=== PATIENT | female | born 1955 | race Caucasian/White ===

== ENCOUNTER 2024-12-20 08:43 | Outpatient (AMB) | payer OTHER, SELFPAY ==
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
[2024-12-20 08:45] VITALS: BP 120/82; PULSE 64; O2SAT 96; BMI 24.7
--- OUTSIDE RECORDS SUMMARY | 2024-12-20 09:08 | XMS_ITS | Encounter Summary ---
Author Organization [facility] Address [address] [facility] [address] [place] [address] Phone Care Team Providers Care Liaison Engineer Name Role Phone Pcp, Unknown Primary Care Provider Eliza Hyde Primary Care Provider [phone] Akilah Mary MD Primary Care Provider [phone] Zeenat Santana MD Primary Care Provider [phone] Encounter Details Date Type Department Care Team (Late st Contact Info) Description 07/14/2023 Procedure Pass [facility], Ct Scan - [address] [address] Social History Tobacco Use Types Packs/Day Years Used Date Smoking Tobacco: Never Smokeless Tobacco: Never Alcohol Use Standard Drinks/Week Comments Yes 0 (1 standard drink = 0.6 oz pur e alcohol) Education Answer Date Recorded Are you interested in more education? Not on rafy e 07/14/2023 Are you concerned about learning? Not on file 07/14/2023 No 07/14/2023 No 07/14/2023 Digital Access Answer Date Recorded No 07/14/2023 No 07/14/2023 Reliable internet access at home? Not on file 07/14/2023 Device with a working camera? Not on file Comments Unknown Sex and Gender Information Value Date Recorded Sex Assigned at Female 07/14/2023 9:30 AM EDT Legal Sex Female 9:15 AM EDT Gender Identity Female 07/14/2023 9:30 AM EDT Sexual Orientation Straight 07/14/2023 9: 30 AM EDT documented as of this encounter Functional Status * Calculated C-SSRS Risk Score (Lifetime/Recent) Answer Date of Assessment Author No Risk Indicated 07/14/2023 9:30 AM EDT Tasneem Pearce ma, RN * Josephine Suicide Severity Rating Scale (Screener/Recent Self-Report) Question Answer Date of Assessment Author 1. Wish to be (Past 1 Month) No 024 9:30 AM EDT Babs Pearce RN 2. Non-Specific Active Suici magy Thoughts (Past 1 Month) No 07/14/2023 9:30 AM EDT Babs Pearce RN 6. Suicidal Behavior (Lifetime) No 9:30 AM EDT Babs Pearce RN documented as of this encounter Plan of Treatment Upcoming Encounters Date Type Department Care Team (Late st Contact Info) Description 03/09/2025 1:00 PM EST Office Visit [facility] Psychology Assessment Center 1 [facility] 7th [place] [address] Audra Blair, PhD [address] [place] [address] [address] [place] [address] MARIA [email or web address] 03/22/2025 1:00 PM EST Telemedicine [facility] Sleep Disorders Unit [address] [place] [address], 8th Floor, [address] [place] [address] Gianni Forbes FNP [address] [place] [address] [address] [address] [email or web address] 04/05/2025 1:00 PM EST Office Visit [facility] [address] [place] [address] [place] [address] Zeenat Santana MD [address] [place] [address], 2nd [place] [address] documented as of this encounter Visit Diagnoses Not on filedocumented in this encounter Care Teams Liaison Engineer Relationship Specialty Start Date End Date Pcp, Unknown PCP - General 07/14/23 10/26/23 Eliza Tavera FNP [address] [address] [email or web address] PCP - General Nurse Practitioner 10/27/23 05/13/24 Akilah Mary MD [address] [address] PCP - General Family Medicine 05/14/24 12/01/24 Zeenat Santana MD [address] [place] [address], 2nd [place] [address] PCP - General Internal Medicine 12/02/24 documented as of this encounter Additional Source Comments The information contained in this document represents components of the legal health record. It is not the complete legal health record.[facility]
--- OUTSIDE RECORDS SUMMARY | 2024-12-20 09:08 | XMS_ITS | Clinical Summary ---
Author Organization [address] Address [address] [place] [phone] Phone Care Team Providers Care Pattern Designer Name Role Phone Unavailable Primary Care Provider Unavailabl e Social History Tobacco Use Types Packs/Day Years Used Date Smoking Tobacco: Never Assessed Comments Unknown Sex and Gender Information Value Date Recorded Sex Assigned at Not on file Legal Sex Female 9:49 AM EDT Gender Identity Not on file Sexual Orientation Not on file Plan of Treatment Upcoming Encounters Date Type Department Care Team (Late st Contact Info) Description 04/26/2025 9:00 AM EST Evaluation [facility] [address] [place] [address] Mroris Sanchez MD [address] [place] [phone] Trinidad Carrizales PsyD [address] [place] [phone] Health Maintenance Due Date Last Done Comments HIV screening 1966 Hepatitis C screening 1971 Tetanus adult (Td q 10,TDAP once) 1973 Breast cancer screening 1993 Lipid disorder screening 1993 Colon cancer screening, Colonoscopy 1998 Diabetes screening 1998 Osteoporosis screening (bone density) 2018 Influenza vaccine 10/22/2024 01/11/2022, , 12/24/2019, Additional history exists Covid-19 vaccine series ( - 2023- season) 2024 RSV Immunization (1 - 1-dose 75+ series) 2028 Pneumococcal Vaccine (50+ years) Completed 03/06/2020, 06/15/2018 Shingles vaccine (Shingrix) Completed 06/05/2021, 1 05/01/2020 Cervical cancer screening Discontinued Meningococcal B Vaccine Aged Out No l onger eligible based on patient's age to complete this topic Meningococcal Vaccine Aged Out No dawson [place] eligible based on patient's age to complete this topic Insurance [facility] MGD [facility] M[facility] MGD
--- OUTSIDE RECORDS SUMMARY | 2024-12-20 09:08 | XMS_ITS | Encounter Summary ---
Author Organization [facility] Address [address] [facility] [address] [place] [address] Phone Care Team Providers Care Bindery Assistant Name Role Phone Pcp, Unknown Primary Care Provider Eliza Hyde Primary Care Provider [phone] Akilah Mary MD Primary Care Provider [phone] Zeenat Santana MD Primary Care Provider [phone] Encounter Details Date Type Department Care Team (Late st Contact Info) Description 07/14/2023 Procedure Pass [facility], Ct Scan - [address] [address] Social History Tobacco Use Types Packs/Day Years [...] AM EDT Tasneem Pearce ma, RN * [place] Suicide Severity Rating Scale (Screener/Recent Self-Report) Question [...] Description 03/09/2025 1:00 PM EST Office Visit [facility] Psychology Assessment Center 1 [facility] 7th [place] [address] Audra Blair, PhD [address] [place] [address] [address]01[address] [place] [address] MARIA [email or web address] 03/22/2025 1:00 PM EST Telemedicine [facility] Sleep Disorders Unit [address] [place] [address], 8th Floor, [address] [place] [address] Gianni Forbes FNP [address] [place] [address] [address] [email or web address] 04/05/2025 1:00 PM EST Office Visit [facility] [address] [place] [address] [place] [address] Zeenat Santana MD [address] [place] [address], 2[address] [place] [address] documented as of this encounter Visit Diagnoses Not on filedocumented in this encounter Care Teams Bindery Assistant Relationship Specialty Start Date End Date Pcp, Unknown PCP - General 07/14/23 10/26/23 Eliza Tavera FNP [address] [address] [email or web address] PCP - General Nurse Practitioner 10/27/23 05/13/24 Akilah Mary MD [address] [address] PCP - General Family Medicine 05/14/24 12/01/24 Zeenat Santana MD [address] [place] [address], 2nd [place] [address] PCP - General Internal Medicine 12/02/24 documented as of this encounter Additional Source Comments The information contained in this document represents components of the legal health record. It is not the complete legal health record.[facility]
--- OUTSIDE RECORDS SUMMARY | 2024-12-20 09:08 | XMS_ITS | Encounter Summary ---
Author Organization [facility] Address [address] [facility] [address] [place] [address] Phone Care Team Providers Care Underwriting Clerks Supervisor Name Role Phone Eliza Tavera ACCOUNT COLLECTOR Primary Care Provider [phone] Akilah Mary MD Primary Care Provider [phone] Zeenat Santana MD Primary Care Provider [phone] Encounter Details Date Type Department Care Team (Late st Contact Info) Description 02/05/2024 Procedure Pass [address] [place] [address] Social History Tobacco Use Types Packs/Day Years Used Date Smoking Tobacco: Former Cigarettes 1 43 1 8 - 2010 Smokeless Tobacco: Never Comments:Quit in 2010 Alcohol Use Standard Drinks/Week Comments Yes 0 (1 standard drink = 0.6 oz pure alcohol) Occasionally, about 3 times a month Child or Family Care Answer Date Record ed Do you have problems with on e of the following making it difficult for you to work, study, or receive health care? No 10/01/2023 Education Answer Date Recorded Are you interested in more education? Not on rafy e 07/14/2023 Are you concerned about learning? Not on file 07/14/2023 No 07/14/2023 No 07/14/2023 Food Answer Date Recorded Within the past 6 months we worried whether our food would run out before we got money to buy more. Never True 10/01/2023 Within the past 6 months the food we bought just didn't last and we didn't have enough money to get more. Never True Residential Stability Answer Date Recor ded What is your housing situation today? I have lupe samuel 10/01/2023 How many times have you move d in the past 12 months? I choose not to answer 10/01/2023 Paying for Meds Answer Date Recorded Do you have trouble paying for medicines? No 10/01/2023 Paying Utility Bills Answer Date Record ed Do you have trouble paying your heating or elect ricity bill? No 10/01/2023 Transportation Answer Date Recorded Has the lack of transportati on kept you from medical appointments or from getting medications? No 10/01/2023 Digital Access Answer Date Recorded No 10/01/2023 Yes 10/01/2023 Do you have reliable internet access at home? Ye s 10/01/2023 Do you have a device (e.g., phone, tablet, computer) with a working camera? Yes 10/01/2023 Intimate Partner Violence Answer Date R ecorded Are you denied basic needs s uch as food, clothing, or medical care? No 10/03/2023 In the past 12 months have y ou been in a relationship with a person who hurts, threatens, or tries to control you? Deferred 10/03/2023 Are you denied basic needs s uch as food, clothing, or medical care? No 10/03/2023 In the past 12 months have y ou been in a relationship with a person who hurts, threatens, or tries to control you? Deferred 10/03/2023 Comments Unknown Sex and Gender Information Value Date Recorded Sex Assigned at Female 07/14/2023 9:30 AM EDT Legal Sex Female 9:15 AM EDT Gender Identity Female 07/14/2023 9:30 AM EDT Sexual Orientation Straight 07/14/2023 9: 30 AM EDT documented as of this encounter Plan of Treatment Upcoming Encounters Date Type Department Care Team (Late st Contact Info) Description 03/09/2025 1:00 PM EST Office Visit [facility] Psychology Assessment Center [address] [place], [place] [id number] Audra Blair, PhD [address] [place] [address] MARIA [email or web address] 03/22/2025 1:00 PM EST Telemedicine [facility] Sleep Disorders Unit [address] [facility], 8th Floor, [address] [place] [address] Gianni Forbes FNP [address] [facility] [place] [address] [email or web address] 04/05/2025 1:00 PM EST Office Visit [facility] [address] [place] [address] [place] [address] Zeenat Santana MD [address] [place] [address] [email or web address] documented as of this encounter Visit Diagnoses Not on filedocumented in this encounter Care Teams Underwriting Clerks Supervisor Relationship Specialty Start Date End Date Eliza Tavera FNP [address] [address] [email or web address] PCP - General Nurse Practitioner 10/27/23 05/13/24 Akilah Mary MD 15 [facility] [address] [place] [address] PCP - General Family Medicine 05/14/24 12/01/24 Zeenat Santana MD [address] [place] [address] [email or web address] PCP - General Internal Medicine 12/02/24 documented as of this encounter Additional Source Comments The information contained in this document represents components of the legal health record. It is not the complete legal health record.[facility]
--- OUTSIDE RECORDS SUMMARY | 2024-12-20 09:08 | XMS_ITS | Clinical Summary ---
Author Organization [facility] Address [address] [facility] [address] [place] [phone] Phone Care Team Providers Care Silk Hanger Name Role Phone Max Zeenat Hernandez MD Primary Care Provider [phone] Allergies Active Allergy Reactions Criticality Noted Date Comments Penicillins Rash Low 07/14/2023 Medications atenolol (TENORMIN) 50 mg tablet Take 50 mg by mouth daily. Active buPROPion (WELLBUTRIN) 100 MG immediate release tablet Take 100 mg by mouth 2 (two) times a day. Active hydroCHLOROthiazi de 25 MG tablet Take 25 mg by mouth daily. 4 Active losartan (COZAAR) 100 MG tablet Take 100 mg by mouth daily. Active PARoxetine (PAXIL) 40 MG tablet Take 40 mg by mouth every morning. Active rosuvastatin (CRESTOR) 20 MG tablet Take 20 mg by mouth daily. Active calcium-vitamin D3-vitamin K (VIACTIV) 1,250 mg (500 mg elemental)-500 unit-40 mcg Chew Take 1 tablet by mouth daily. Active betamethasone dipropionate 0.05 % cream 4 Active minoxidiL (LONITEN) 2.5 MG tablet 4 Active BABY ASPIRIN ORAL Take 81 mg by mouth daily. Active gabapentin (NEURONTIN) 300 MG capsuleIndication s:Lumbar radiculopathy Take 1 capsule (300 mg total) by mouth nightly at bedtime. 30 capsule 11/12/03/19 25 Discontinu ed(No longer taking) Active Problems Problem Noted Date Diagnosed Date Depression with anxiety 12/02/2024 Involuntary movements 12/02/2024 At risk for falling 11/12/2023 Assessment & Plan (11/12/2023 9:10 AM EDT): Discussed concerns related to falls and unsteadiness. I do believe that she may benefit from ambulatory aid when walking greater distances due to reports stumbling Memory loss 10/03/2023 Assessment & Plan (05/07/2024 5:43 PM EST): We discussed upcoming appointment with neurology for further evaluation of perceived memory changes. Devorah does note concern that her daughters may be correct she is starting to experience more difficulty with word finding. Assessment & Plan (11/12/2023 9:08 AM EDT): Encouraged to schedule appointment with neurology, referral and scheduling information given to patient today Assessment & Plan (10/03/2023 5:42 PM EDT): Discussed concern for recent memory changes including difficulty with word finding. In conjunction with subjective report of frequent falls and altered gait I do think that consultation with neurology is important. Referral placed to Dr. Cordova. We will also request previous medical records for further insight into pertinent medical history as she is unable to recall at time of appointment. Cardiomyopathy 04/29/2023 Assessment & Plan (10/03/2023 5:41 PM EDT): Previous cardiology notes requested for diagnostic clarity as she is uncertain of official diagnosis and previous workup. Essential hypertension 04/29/2023 Assessment & Plan (05/07/2024 5:43 PM EST): Well-controlled today in office, continue medications as prescribed Assessment & Plan (11/12/2023 9:07 AM EDT): Well controlled today in office, continue medications as prescribed Assessment & Plan (10/03/2023 5:40 PM EDT): Blood pressure well-controlled today in office. Previous cardiology notes requested. Continue medications as prescribed. LUIZ (obstructive sleep apnea) 04/29/2023 Unsteady gait Low back pain Urinary incontinence Encounters Date Type Department Care Team Description 12/02/2024 10:43 AM EDT - 12/02/2024 11:59 PM EDT Hospital Encounter [facility] [address] [place] [address] Morris Sanchez MD Discharge Disposition: Home or Self Care 12/02/2024 10:00 AM EDT Office Visit [facility] [address] [place] [address] Zeenat Santana MD Essential hypertension (Primary Dx); Cardiomyopathy, unspecified type; Memory loss; Involuntary movements; Depression with anxiety 10/18/2024 2:33 PM EDT - 10/18/2024 11:59 PM EDT Hospital Encounter [facility] [address] [address] Damion Olmos FNP Discharge Disposition: Home or Self Care from Last 3 Months Immunizations Immunization Administration Dates Next Due COVID-19 Moderna Vaccine 6mo-11yr 2023,02/27/2023,03/14/2022,2020,06/10/2020,05/13/2020 Influenza High-Dose Trivalen t Preservative Free IM 12/02/2024 Influenza, Unspecified Formulation 11/23/2023 Family History Medical History Relation Comments Breast cancer Daughter 1 Age 44. Testing done stated not hereditary No Known Problems Daughter 2 Heart disease Father Pancreatic cancer Mother Stage 4 when d iscovered. Now . Breast cancer Sister She Did genetic testing and type was not heredity Relation Status Comments Daughter 1 Alive Daughter 2 Alive Father Mother Sister Alive Social History Tobacco Use Types Packs/Day Years Used Date Smoking Tobacco: Former Cigarettes 1 43 0 03/24/1967 - 07/03/2011 Smokeless Tobacco: Never Tobacco Cessation:Counseling Given: Not Answered Comments:Did not smoke prior to or for while after Alcohol Use Standard Drinks/Week Comments Not Currently 0 (1 standard drink = 0.6 oz pure alcohol) 2-3 drinks a month. Some months none Child or Family Care Answer Date Record [...] your housing situation today? I have lupe sing 10/01/2023 How many times have you move [...] as food, clothing, or medical care? No 11/26/2024 In the past 12 months have y ou been in a relationship with a person who hurts, threatens, or tries to control you? No 11/26/2024 Are you denied basic needs s uch as food, clothing, or medical care? No 11/26/2024 In the past 12 months have y ou been in a relationship with a person who hurts, threatens, or tries to control you? No 11/26/2024 Comments No Sex and Gender Information Value Date Recorded Sex Assigned at Female 07/14/2023 9:30 AM EDT Legal Sex Female 9:15 AM EDT Gender Identity Female 07/14/2023 9:30 AM EDT Sexual Orientation Straight 07/14/2023 9: 30 AM EDT Last Filed Vital Signs Vital Sign Reading Time Taken Comments Blood Pressure 136/70 12/02/2024 9:59 AM EDT Pulse 61 12/02/2024 9:59 AM EDT Temperature 36.7 C (98 F) 07/14/2023 3:41 PM EDT Respiratory Rate 16 07/14/2023 3:41 PM EDT Oxygen Saturation 95% 12/02/2024 9:59 AM EDT Inhaled Oxygen Concentration - - Weight 69.2 kg (152 lb 9.6 oz) 12/02/2024 9:59 A M EDT Height 170.2 cm (5' 7 ) 05/06/2024 11:12 AM EST Body Mass Index 23.9 05/06/2024 11:12 AM EST Plan of Treatment Upcoming Encounters Date Type Department Care Team (Late st Contact Info) Description 03/09/2025 1:00 PM EST Office Visit [facility] Psychology Assessment Center [address] [place] [address] 7th [place] [address] Audra Blair, PhD [address] [place] [address] [address] [place] [address] MARIA [email or web address] 03/22/2025 1:00 PM EST Telemedicine [facility] Sleep Disorders Unit [address] [place] [address], 8th Floor, [address] [place] [address] Gianni Forbes FNP [address] [place] [address] [facility] [address] [place] [address] [email or web address] 04/05/2025 1:00 PM EST Office Visit [facility] [address] [place] [address] [place] [address] Zeenat Santana MD [address] [place] [address], [address] [place] [address] Health Maintenance Due Date Last Done Comments Adult Td,Tdap Booster 1955 LIPID PANEL 1953 HEPATITIS C SCREENING 1971 COLOGUARD 1998 COLONOSCOPY 1998 COLORECTAL CANCER SCREENING 1998 FIT TEST 1998 FOBT 1998 SIGMOIDOSCOPY 1998 VIRTUAL COLONOSCOPY 1998 LUNG CANCER SCREENING (LDCT Only) 2003 PNEUMOCOCCAL VACCINES (50+ years) (1 of 1 - PCV) 2003 ZOSTER VACCINES (1 of 2) 2003 COVID-19 VACCINE ( - 2023- season) 2024 10/23/2023, 02/27/2023, 03/14/2022, Additional history exists REPEAT PHQ 12/26/2024 11/26/2024, 11/26/2024 BLOOD PRESSURE 06/01/2025 12/02/2024 DEPRESSION SCREENING 11/26/2025 11/26/2024, 11/27/19 25 CREATININE LEVEL 12/02/2025 12/02/2024, 07/14/2023 POTASSIUM LEVEL 12/02/2025 12/02/2024, 07/14/2023 MAMMOGRAM 04/26/2026 04/26/2024, 11/0 11/2022, 12/16/2019, Additional history exists RSV VACCINE (1 - 1-dose 75+ series) 2028 OSTEOPOROSIS SCREENING INITIAL (ONE-TIME) Completed 10/18/2024 INFLUENZA VACCINE Completed 12/02/2024, 11/23/2023 HEPATITIS A VACCINES Aged Out No long er eligible based on patient's age to complete this topic HIB VACCINES Aged Out No longer eligi ble based on patient's age to complete this topic MENINGOCOCCAL VACCINES (ACWY) Aged Out No longer eligible based on patient's age to complete this topic MENINGOCOCCAL VACCINES (B) Aged Out N o longer eligible based on patient's age to complete this topic Medical Devices Not on file Procedures Procedure Name Priority Date/Time Associated Diagnosis Comments LYME WESTERN BLOT ONLY Routine 10:44 AM EDT CBC AND DIFFERENTIAL Routine 12/02/2024 10:44 AM EDT Memory loss Unsteady gait COMPREHENSIVE METABOLIC PANEL Routine 12/02/2024 10:44 AM EDT Memory loss Unsteady gait FOLATE Routine 12/02/2024 10:44 AM EDT Memory loss Unsteady gait VITAMIN B12 Routine 12/02/2024 10:44 AM EDT Memory loss Unsteady gait TSH WITH REFLEX Routine 12/02/2024 10:44 AM EDT Memory loss Unsteady gait SYPHILIS ANTIBODY SCREEN ASSAY Routine 12/02/2024 10:44 AM EDT Memory loss Unsteady gait SEDIMENTATION RATE (ESR) Routine 12/02/2024 10:44 AM EDT Memory loss Unsteady gait 25-OH VITAMIN D Routine 12/02/2024 10:44 AM EDT Vitamin D deficiency, unspecified LYME SCREEN WITH REFLEX TO WESTERN BLOT, BLOOD Routine 12/02/2024 10:44 AM EDT Memory loss Unsteady gait BD DXA AXIAL (SPINE) WITH HIP Routine 10/18/2024 2:48 PM EDT Menopausal state OUTSIDE IMAGING 10/04/2024 BI MAMMOGRAM SCREENING WITH TOMOSYNTHESIS WITH CAD (BILATERAL) Routine 04/26/2024 11:39 AM EST Encounter for screening mammogram for malignant neoplasm of breast from Last 3 Months or Most Recently Relevant to Health Maintenance Results * Lyme Western blot only (12/02/2024 10:44 AM EDT) IGG Immunoblot Negative Negative [facility] IGG BANDS (KDA) p23 kDa [facility] IGM Immunoblot Negative Negative [facility] IGM BANDS (KDA) p41 kDa [facility] Interpretation - Lyme SEE NOTE [facility] [address] Comment: (NOTE) Specific serologic response to B. burgdorferi infection is not detected, but cannot rule out early infection during which low or undetectable antibody levels to B. burgdorferi may be present. If clinically indicated, a new serum specimen should be submitted in 7-14 days. ADDITIONAL INFORMATION Per CDC criteria, the Lyme IgG Immunoblot is interpreted as positive if IgG-class antibodies are detected to >=5 B. burgdorferi proteins, and the Lyme IgM Immunoblot is interpreted as positive if IgM-class antibodies are detected to >=2 B. burgdorferi proteins. Immunoblot patterns not meeting these criteria should not be interpreted as positive. Epitopes from certain B. burgdorferi proteins (e.g., p41) are conserved across other bacteria, which may lead to the detection of IgM- and/or IgG-class antibodies on the Lyme disease immunoblots in patients without Lyme disease. Immunoblot should only be ordered on specimens that are positive or equivocal by a FDA-licensed Lyme disease antibody screening test (e.g., EIA). Results of the Lyme IgM immunoblot should not be considered in patients with >= 30 days of symptoms. 12/02/2024 10:4 4 AM EDT 12/02/2024 10:50 AM EDT Morris Sanchez MD LAB BLOOD ORDERABLES Final Res ult [facility] [address] [place] [address] * (ABNORMAL) Lyme Screen with Reflex to Immunoblot, Blood (12/02/2024 10:44 AM EDT) Lyme AB IgG Negative Negative [facility] Lyme AB IgM Equivocal(A) Negative [facility] Comment:The Lyme Disease Ant ibody, Confirmation, Serum (Western Blot) has been reflexed. The results will follow. Blood 12/02/2024 10:4 4 AM EDT 12/02/2024 10:50 AM EDT us Morris Sanchez MD LAB BLOOD ORDERABLES Final Res ult [address] [address] * (ABNORMAL) Comprehensive metabolic panel (12/02/2024 10:44 AM EDT) SODIUM 144 133 - 146 mmol/L [facility] POTASSIUM 4.6 3.3 - 5.1 mmol/L [facility] CHLORIDE 105 96 - 108 mmol/L [facility] CO2 28 21 - 35 mmol/L [facility] BUN 15 6 - 19 mg/dL [facility] CREATININE 1.00 0.5 - 1.5 mg/dL [facility] GLUCOSE 110(H) 70 - 99 mg/dL [facility] ALBUMIN 4.1 3.9 - 4.8 g/dL [facility] TOTAL PROTEIN 7.1 6.5 - 8.0 g/dL [facility] CALCIUM 10.4(H) 8.4 - 10.3 mg/dL [facility] ALKALINE PHOSPHATASE 111 39 - 117 U/L [facility] TOTAL BILIRUBIN 0.3 0.0 - 1.2 mg/dL [facility] AST 33 0 - 37 U/L [facility] ALT 22 0 - 40 U/L [facility] GLOBULIN 3.0 1 - 4.8 g/dL [facility] EGFR 60 >59 mL/min/1.7 3m2 [facility] Comment:Estimated glomerular filtration rate calculated using the CKD-EPI refit equation. ANION GAP 16 10 - 20 mmol/L [facility] Blood 12/02/2024 10:4 4 AM EDT 12/02/2024 10:50 AM EDT us Morris Sanchez MD LAB BLOOD ORDERABLES Final Res ult [address] [address] * TSH with reflex (12/02/2024 10:44 AM EDT) TSH 2.65 0.27 - 4.20 uIU/mL [facility] Blood 12/02/2024 10:4 4 AM EDT 12/02/2024 10:50 AM EDT Morris Sanchez MD LAB BLOOD ORDERABLES Final Res ult Performing Organization Address City/[facility]/ZIP Co de Phone Number [address] [address] * Syphilis antibody screen (12/02/2024 10:44 AM EDT) RPR NON-REACTIV E NON-REACTI VE [facility] Blood 12/02/2024 10:4 4 AM EDT 12/02/2024 10:50 AM EDT Morris Sancehz MD LAB BLOOD ORDERABLES Final Res ult Performing Organization Address [facility] Co de Phone Number [address] [address] * 25-OH vitamin D (12/02/2024 10:44 AM EDT) 25 OH VIT D (TOTAL) 48 30 - 60 ng/mL [facility] Blood 12/02/2024 10:4 4 AM EDT 12/02/2024 10:50 AM EDT Morris Sanchez MD LAB BLOOD ORDERABLES Final Res ult Performing Organization Address City/[facility] Co de Phone Number [address] [address] * Sedimentation rate (ESR) (12/02/2024 10:44 AM EDT) ESR 29 0 - 30 mm/h [facility] Blood 12/02/2024 10:4 4 AM EDT 12/02/2024 10:50 AM EDT Morris Sanchez MD LAB BLOOD ORDERABLES Final Res ult [facility] [address] [place] [address] * CBC and differential (12/02/2024 10:44 AM EDT) WBC 6.47 4.00 - 11.00 K/uL [facility] RBC 4.67 4.00 - 5.20 M/uL [facility] HGB 13.1 12.0 - 16.0 g/dL [facility] HCT 40.7 36.0 - 46.0 % [facility] PLT 222 150 - 450 K/uL [facility] MCV 87.2 80.0 - 100.0 fL [facility] MCH 28.1 27.0 - 31.0 pg [facility] MCHC 32.2 32.0 - 36.0 g/dL [facility] RDW 13.2 11.5 - 14.5 % [facility] MPV 11.7 8.4 - 12.0 fL [facility] NRBC 0.00 0.00 /100 WBCs [facility] ABSOLUTE NRBC 0.00 0.00 K/uL [facility] DIFF METHOD Auto [facility] NEUTS 54.1 48.0 - 76.0 % [facility] LYMPHS 33.1 18.0 - 41.0 % [facility] MONOS 8.0 4.0 - 11.0 % [facility] EOS 3.2 0.0 - 5.0 % [facility] BASOS 1.4 0.0 - 1.5 % [facility] Granulocytes, immature (%) 0.2 0.0 - 0.9 % [facility] ABSOLUTE NEUTS 3.50 1.92 - 7.60 K/uL [facility] ABSOLUTE LYMPHS 2.14 0.72 - 4.10 K/uL [facility] ABSOLUTE MONOS 0.52 0.16 - 1.10 K/uL [facility] ABSOLUTE EOS 0.21 0.00 - 0.50 K/uL [facility] ABSOLUTE BASOS 0.09 0.00 - 0.15 K/uL [facility] Granulocytes, immature 0.01 0.00 - 0.09 K/uL [facility] Blood 12/02/2024 10:4 4 AM EDT 12/02/2024 10:50 AM EDT us Morris Sanchez MD LAB BLOOD ORDERABLES Final Res ult Performing Organization Address City/[facility]/ZIP Co de Phone Number [address] [address] * Folate (12/02/2024 10:44 AM EDT) FOLIC ACID 11.0 4.2 - 19.9 ng/mL [facility] Blood 12/02/2024 10:4 4 AM EDT 12/02/2024 10:50 AM EDT us Morris Sanchez MD LAB BLOOD ORDERABLES Final Res ult Performing Organization Address [facility]/ZIP Co de Phone Number [address] [address] * Vitamin B12 (12/02/2024 10:44 AM EDT) VITAMIN B12 281 232 - 1,245 pg/mL [facility] Blood 12/02/2024 10:4 4 AM EDT 12/02/2024 10:50 AM EDT Morris Sanchez MD LAB BLOOD ORDERABLES Final Res ult Performing Organization Address [facility] Co de Phone Number [address] [address] * BD DXA AXIAL (SPINE) WITH HIP (10/18/2024 2:48 PM EDT) Anatomical Region Laterality Modality Bone Density Bone Density 10/18/2024 2:47 PM EDT Impressions 10/19/2024 12:17 PM EDT Interpretation: Osteopenia. Narrative 10/19/2024 12:17 PM EDT Referred By: DAMION OLMOS Indications: Postmenopausal Scanner: Crambu A with serial# of [id number] located at [facility] Bone Density Scan (DXA) 10/18/24 Details of prior DXA scans are available by clicking View Full Report BMD T- Z- Skeletal Site gm/cm2 score score BMD Change Since Prior Scan ------ ----- ----- PA Spine (L1 L4) 1.048 0.10 2.30 N/A Total Hip (Left) 0.874 -0.60 1.00 N/A Femoral Neck (Left) 0.757 -0.80 1.10 N/A Total Hip (Right) 0.841 -0.80 0.80 N/A Femoral Neck (Right) 0.675 -1.60 0.30 N/A ------ ----- ----- * Denotes significant change when >= 0.022 g/cm2 for the spine, 0.027 g/cm2 for the total hip, 0.029 g/cm2 for the femoral neck. Interpretation: Osteopenia. Technical Quality: Imaging of all sites was of adequate quality.Because only two vertebrae are measurable, interpret PA spine results with caution; serial changes may be more variable than usual. FRAX: Based on FRAX(r) 3.6 ([place] White female), this patient's likelihood of hip fracture is 3.9% and major osteoporotic fracture is 15.3% over the next 10 years. The patient reported the following risks of fracture on a questionnaire: parental history of hip fracture. Reviewed By: Lazaro Lockhart on 10/19/2024 12:17:31 Additional Information: -World Health Organization criteria classify adults based on lowest T-score at PA spine, hip or forearm: Normal (T-score >= -1.0), Osteopenia (T-score between -1 and -2.5), or Osteoporosis (T-score <= -2.5). At [facility], T-scores are compared to peak bone density of a young white gender matched reference population. - For premenopausal women and men under the age of 50, Z-scores (comparison to age, gender, and ethnicity matched reference population) are used: Above expected range for age (Z-score >= 2.0), Within expected range of age (Z-score 1.9 to -1.9), or Below expected range for age (Z-score <= -2.0). - The Bone Health and Osteoporosis Foundation recommends that treatment be considered in men aged more than 50 years and in postmenopausal women with ANY of the following: Prior hip or vertebral fractures; T-score of <= -2.5 at the PA spine or hip; or 10 year fracture probability by FRAX of >= 3% for the hip or >= 20% for major osteoporotic fracture. - The FRAX algorithm (https://www.amena.ac.uk/FRAX/tool.aspx) is designed to predict 10-year fracture risk in treatment-naive adults between the ages of 40 and 90. It is not intended to be used in those receiving pharmacologic osteoporosis treatment. - The TBS is derived from the texture of the DXA spine image and has been shown to be related to bone microarchitecture and fracture risk. This data provides information independent of BMD value. It adds to fracture risk assessment with a FRAX adjusted for TBS score. If your patient had a TBS and qualified for a FRAX score, the reported FRAX score has been adjusted for TBS. TBS Score Interpretation 1.350 and greater Normal bone microarchitecture 1.200 to 1.350 Partially degraded bone microarchitecture 1.200 and less Degraded bone microarchitecture - Including race/ethnicity in the generation of T- or Z-scores or in the FRAX calculation is complicated, and currently undergoing active review to ensure that we can give patients the best information on their risk of fracture. - Some prior studies may not be compatible with our comparison software. - Click on View Full Report to see subsequent pages with images and prior bone density results. Procedure Note Lazaro Lockhart MD - 10/19/2024 Referred By: DAMION OLMOS Indications: Postmenopausal Scanner: Crambu A with serial# of [id number] located at [facility] Bone Density Scan (DXA) 10/18/24 Details of prior DXA scans are available by clicking View Full Report BMD T- Z- Skeletal Site gm/cm2 score score BMD Change Since Prior Scan ------ ----- PA Spine (L1 L4) 1.048 0.10 2.30 N/A Total Hip (Left) 0.874 -0.60 1.00 N/A Femoral Neck (Left) 0.757 -0.80 1.10 N/A Total Hip (Right) 0.841 -0.80 0.80 N/A Femoral Neck (Right) 0.675 -1.60 0.30 N/A ------ ----- * Denotes significant change when >= 0.022 g/cm2 for the spine, 0.027g/cm2 for the total hip, 0.029 g/cm2 for the femoral neck. Interpretation: Osteopenia. Technical Quality: Imaging of all sites was of adequate quality.Becauseonly two vertebrae are measurable, interpret PA spine results with caution; serial changes may be more variable than usual. FRAX: Based on FRAX(r) 3.6 ([place] White female), this patient's likelihoodof hip fracture is 3.9% and major osteoporotic fracture is 15.3% over thenext 10 years. The patient reported the following risks of fracture on a questionnaire: parental history of hip fracture. Reviewed By: Lazaro Lockhart on 10/19/2024 12:17:31 Additional Information: -World Health Organization criteria classify adults based on lowestT-score at PA spine, hip or forearm: Normal (T-score >= -1.0), Osteopenia (T-score between -1 and -2.5), or Osteoporosis (T-score <= -2.5). At [facility], T-scores are compared to peak bone density of a young white gender matched reference population. - For premenopausal women and men under the age of 50, Z-scores(comparison to age, gender, and ethnicity matched reference population) are used:Above expected range for age (Z-score >= 2.0), Within expected range of age (Z-score 1.9 to -1.9), or Below expected range for age (Z-score <= -2.0). - The Bone Health and Osteoporosis Foundation recommends that treatment be considered in men aged more than 50 years and in postmenopausal women with ANY of the following: Prior hip or vertebral fractures; T-score of <= -2.5 at the PA spine or hip; or 10 year fracture probability by FRAX of >= 3%for the hip or >= 20% for major osteoporotic fracture. - The FRAX algorithm (https://www.amena.ac.uk/FRAX/tool.aspx) is designed to predict 10-year fracture risk in treatment-naive adultsbetween the ages of 40 and 90. It is not intended to be used in those receiving pharmacologic osteoporosis treatment. - The TBS is derived from the texture of the DXA spine image and has been shown to be related to bone microarchitecture and fracture risk. This data provides information independent of BMD value. It adds to fracture risk assessment with a FRAX adjusted for TBS score. If your patient had a TBSand qualified for a FRAX score, the reported FRAX score has been adjusted for TBS. TBS Score Interpretation 1.350 and greater Normal bone microarchitecture 1.200 to 1.350 Partially degraded bone microarchitecture 1.200 and less Degraded bone microarchitecture - Including race/ethnicity in the generation of T- or Z-scores or in the FRAX calculation is complicated, and currently undergoing active review to ensure that we can give patients the best information on their risk of fracture. - Some prior studies may not be compatible with our comparison software. - Click on View Full Report to see subsequent pages with images andprior bone density results. IMPRESSION: Interpretation: Osteopenia. us Damion [employer]ined[employer] CONTROLLER IMG BD BONE DENSITY DEXA Fi nal Result * Outside Imaging Report Only (10/04/2024) us Scanning Interface Provider IMG XR CHEST Sandhya l Result * BI MAMMOGRAM SCREENING WITH TOMOSYNTHESIS WITH CAD (BILATERAL) (04/26/2024 11:39 AM EST) Anatomical Region Laterality Modality Breast Left, Breast Right, Breast Bilateral Bila teral Mammography 04/27/2024 11:0 4 AM EST Impressions 04/27/2024 11:06 AM EST No mammographic evidence of malignancy in either breast. Annual screening mammography is recommended. BI-RADS 1 NEGATIVE The patient will be notified of the results and recommendations. Narrative 04/27/2024 11:06 AM EST BI MAMMOGRAM SCREENING WITH TOMOSYNTHESIS WITH CAD (BILATERAL) Additional patient information: Screening. COMPARISON: Comparison is made to relevant outside prior imaging. Breast composition: There are scattered areas of fibroglandular density. FINDINGS: No abnormal masses, suspicious calcifications, or other significant findings are identified mammographically in either breast. Procedure Note Ese Correa MD - 04/27/2024 BI MAMMOGRAM SCREENING WITH TOMOSYNTHESIS WITH CAD (BILATERAL) Additional patient information: Screening. COMPARISON: Comparison is made to relevant outside prior imaging. Breast composition: There are scattered areas of fibroglandular density. FINDINGS: No abnormal masses, suspicious calcifications, or other significantfindings are identified mammographically in either breast. IMPRESSION: No mammographic evidence of malignancy in either breast. Annual screening mammography is recommended. BI-RADS 1 NEGATIVE The patient will be notified of the results and recommendations. Damion Olmos COAL OR ORE CONTROLLER IMG MG EXAMS Final Resul t from Last 3 Months or Most Recently Relevant to Health Maintenance Insurance [facility] MED[facility] REPLACEMENT [facility] RE[facility]ACEMENT [facility] REPLACEMENT Care Teams Silk Hanger Relationship Specialty Start Date End Date Zeenat Santana MD [address] [place] [address], 2nd [place] [address] [email or web address] PCP - General Internal Medicine 12/02/24 Additional Source Comments The information contained in this document represents components of the legal health record. It is not the complete legal health record.[facility]
--- OUTSIDE RECORDS SUMMARY | 2024-12-20 09:09 | XMS_ITS | Encounter Summary ---
Author Organization [facility] Address [address] [facility] [address] [facility] [address] [place] [address] Phone Care Team Providers Care Glass Bulb Silverer Name Role Phone Eliza Tavera Primary Care Provider Akilah Mary MD Primary Care Provider [phone] Zeenat Santana MD Primary Care Provider Reason for Visit * Reason Onset Date Comments Leg Pain 02/05/2024 Red Encounter Details Date Type Department Care Team (Late st Contact Info) Description 02/05/[address] [facility] [address] [place] [address] Eliza Tavera FNP [address] [facility] [address] [place] [address] [email or web address] Leg Pain (Red/) Social History Tobacco Use Types Packs/Day Years Used Date Smoking Tobacco: Former Cigarettes 1 43 1 968 - 2010 Smokeless Tobacco: Never Comments:Quit in [...] AM EDT documented as of this encounter Progress Notes * Stella Salguero LPN - 02/05/2024 10:55 AM EST S/W Devorah, notes this has been going on for about a year but getting progressively worse. Did go toED in June but no follow up. Started as sciatica, L leg. Usually feels good in the morning and pain progresses throughout the day. Numbness and pins and needles intermittently. No acute weakness. Used heat and ibuprofen to get to sleep but woke up with pain in the night. No sx of restless leg. No redness, swelling, or warmth, no sx of DVT. Nurse Triage Encounter Note Reason for Triage Estefania Coronado contacted office for Leg Pain Red Call Disposition Schedule Visit Within 2 Business Days Disposition Comments: Patient/caregiver understands and will follow disposition: Yes Initial Symptom Screening and Assessment IA Symptom Onset One month or more Symptom Severity Moderate - interferes with normal activities Symptom Pattern Intermittent (comes and goes) Home Treatments OTC Medications; Heat Location? LLE Extremities Neck/Back Symptoms (Musculoskeletal) Musculoskeletal Symptoms Other Other musculoskeletal symptoms Leg pain Did you fall? No Recurrant symptom or condition? Yes Does the pain radiate to elsewhere? No Weakness? No Numbness or loss of sensation? Yes Location? L Leg Other musculoskeletal related symptoms? intermittent pins and needles Care Advice No Care Advice given for this encounter. Patient will call back with additional questions or if symptoms change or worsen Stella Salguero LPN Reason for Disposition and Assessment Reason for Disposition Numbness in a leg or foot (i.e., loss of sensation) Protocols used: Leg [id number] * Vandana Portillo - 02/05/2024 10:45 AM EST Pt called stating has unbearable leg pain in left leg.Please contact and advise. Central Support Chef French (Please do not reply to this user; this inbox is not monitored.) Thank you. documented in this encounter Plan of Treatment Upcoming Encounters Date Type Department Care Team (Late st Contact Info) Description 03/09/2025 1:00 PM EST Office Visit [facility] Psychology Assessment Center [address] [facility] 7th [place] [address] Audra Blair, PhD [address] [facility] [address] [place] [address] MARIA [email or web address] 03/22/2025 1:00 PM EST Telemedicine [facility] Sleep Disorders Unit [address] [facility], 8th Floor, [address] [place] [address] Gianni Forbes FNP [address] [facility] [address] [place] [address] [email or web address] 04/05/2025 1:00 PM EST Office Visit [facility] [address] [place] [address] [place] [address] Zeenat Santana MD [address] [place] [address] [email or web address] documented as of this encounter Visit Diagnoses Not on filedocumented in this encounter Care Teams Glass Bulb Silverer Relationship Specialty Start Date End Date Eliza Tavera FNP [address] [place] [address] [email or web address] PCP - General Nurse Practitioner 10/27/23 05/13/24 Akilah Mary MD [address] [address] PCP - General Family Medicine 05/14/24 12/01/24 Zeenat Santana MD [address] [place] [address] [email or web address] PCP - General Internal Medicine 12/02/24 documented as of this encounter Additional Source Comments The information contained in this document represents components of the legal health record. It is not the complete legal health record.[facility]
--- OUTSIDE RECORDS SUMMARY | 2024-12-20 09:09 | XMS_ITS | Encounter Summary ---
Author Organization [facility] Address [address] [place] [address] Phone Care Team Providers Care Addiction Specialist Name Role Phone Akilah Mray MD Primary Care Provider [phone] Zeenat Santana MD Primary Care Provider [phone] Encounter Details Date Type Department Care Team (Late st Contact Info) Description 07/26/2024 Procedure Pass MRI, [facility] Imaging - [place] [address] [place] [address] Social History Tobacco Use Types Packs/Day Years Used Date Smoking Tobacco: Former Cigarettes 1 43 0 03/24/1967 - 07/03/2011 Smokeless Tobacco: Never Comments:Did not smoke prior to or for while after Alcohol Use Standard Drinks/Week Comments Yes 0 [...] tries to control you? Deferred 10/03/2023 Comments No Sex and Gender Information Value [...] Description 03/09/2025 1:00 PM EST Office Visit [facility] Psychology Assessment Center [address] [place] [address] Audra Blair, PhD [address] [place] [address] [email or web address] [email or web address] 03/22/2025 1:00 PM EST Telemedicine [facility] Sleep Disorders Unit [address] [facility], 8th Floor, [address] [place] [address] Gianni Forbes FNP [address] [facility] [address] [place] [address] [email or web address] 04/05/2025 1:00 PM EST Office Visit [facility] [address] [place] [address] [place] [address] Zeenat Santana MD [address] [place] [address], [address] [place] [address] [email or web address] documented as of this encounter Visit Diagnoses Not on filedocumented in this encounter Care Teams Addiction Specialist Relationship Specialty Start Date End Date Akilah Mary MD [address] [facility] [address] [place] [address] [email or web address] PCP - General Family Medicine 05/14/24 12/01/24 Zeenat Santana MD [address] [place] [address], [address] [place] [address] PCP - General Internal Medicine 12/02/24 documented as of this encounter Additional Source Comments The information contained in this document represents components of the legal health record. It is not the complete legal health record.[facility]
--- OUTSIDE RECORDS SUMMARY | 2024-12-20 09:09 | XMS_ITS | Encounter Summary ---
Author Organization [facility] Address [address] [place] [address] Phone Care Team Providers Care Landfill Gas Technician Name Role Phone Akilah Mary MD Primary Care Provider [phone] Zeenat Santana MD Primary Care Provider [phone] Encounter Details Date Type Department Care Team (Late st Contact Info) Description 07/26/2024 Procedure Pass MRI, [facility] Imaging - [place] [address] [place] [address] Social History Tobacco Use Types Packs/Day Years [...] Description 03/09/2025 1:00 PM EST Office [place] [facility] [place] [address] [place] [address] Audra Blair, PhD [address] [place] [phone] MARIA [email or web address] 03/22/2025 1:00 PM EST Telemedicine [facility] Sleep Disorders Unit [address] [facility], 8th Floor, [address] [place] [address] Gianni Forbes FNP [address] [facility] [address] [place] [address] [email or web address] 04/05/2025 1:00 PM EST Office Visit [facility] [address] [place] [address] [place] [address] Zeenat Santana MD [address] [place] [address], [address] [place] [address] [email or web address] documented as of this encounter Visit Diagnoses Not on filedocumented in this encounter Care Teams Landfill Gas Technician Relationship Specialty Start Date End Date Akilah Mary MD [address] [facility] [address] [place] [address] [email or web address] PCP - General Family Medicine 05/14/24 12/01/24 Zeenat Santana MD [address] [place] [address], [address] [place] [address] PCP - General Internal Medicine 12/02/24 documented as of this encounter Additional Source Comments The information contained in this document represents components of the legal health record. It is not the complete legal health record.[facility]
--- OUTSIDE RECORDS SUMMARY | 2024-12-20 09:09 | XMS_ITS ---
Author Name [facility] Organization Unknown Results Test Name/Text Value Interpretation Date Range Source GLUCOSE MEAN VALUE:ACNC:PT:BLD:QN:ES TIMATED FROM GLYCATED HEMOGLOBIN 120.0 mg/dL Normal 06/04/2024 [facility] HEMOGLOBIN A1C/HEMOGLOBIN.TOTAL:MF R:PT:BLD:QN:HPLC 5.8 % Above high normal 06/04/2024 4 - 5.6 [facility] LDL Note See Note Normal 06/04/2024 [facility] CHOLESTEROL.IN LDL:MCNC:PT:SER/PLAS:QN :CALCULATED 63.0 mg/dL Normal 06/04/2024 - [facility] CHOLESTEROL.IN HDL:MCNC:PT:SER/PLAS:QN : 47.0 mg/dL Below low normal 06/04/2024 - [facility] CHOLESTEROL:MCNC:PT:SER /PLAS:QN: 133.0 mg/dL Normal 06/04/2024 - [facility] TRIGLYCERIDE:MCNC:PT:SE R/PLAS:QN: 115.0 mg/dL Normal 06/04/2024 - [facility] GLOMERULAR FILTRATION RATE/1.73 SQ M.PREDICTED:ARVRAT:PT:S ER/PLAS/BLD:QN:CREATINI NE-BASED FORMULA (CKD-EPI) 57.0 mL/min/1.73 m2 Below low normal 06/04/2024 - [facility] ANION GAP 3:SCNC:PT:SER/PLAS:QN: 10.0 mmol/L Normal 06/04/2024 8 - 16 [facility] POTASSIUM:SCNC:PT:SER/P LAS:QN: 4.1 mmol/L Normal 06/04/2024 3.5 - 5.3 [facility] CHLORIDE:SCNC:PT:SER/PL :QN: 107.0 mmol/L Normal 06/04/2024 97 - 107 [facility] SODIUM:SCNC:PT:SER/PLAS :QN: 143.0 mmol/L Normal 06/04/2024 135 - 145 [facility] BILIRUBIN:MCNC:PT:SER/P LAS:QN: 0.5 mg/dL Normal 06/04/2024 0 - 1.2 [facility] ALANINE AMINOTRANSFERASE:CCNC:P T:SER/PLAS:QN:WITH P-5'-P 18.0 U/L Normal 06/04/2024 10 - 55 [facility] BICARBONATE:SCNC:PT:SER /PLAS:QN: 26.0 mmol/L Normal 06/04/2024 22 - 29 [facility] UREA NITROGEN:MCNC:PT:SER/PL :QN: 18.0 mg/dL Normal 06/04/2024 6 - 23 [facility] ALBUMIN:MCNC:PT:SER/DAMION S:QN:BCG 4.1 g/dL Normal 06/04/2024 3.7 - 5.1 [facility] CALCIUM:MCNC:PT:SER/DAMION S:QN: 9.6 mg/dL Normal 06/04/2024 8.6 - 10.4 [facility] PROTEIN:MCNC:PT:SER/DAMION S:QN: 6.5 g/dL Normal 06/04/2024 6.3 - 7.9 [facility] ALKALINE PHOSPHATASE:CCNC:PT:SER /PLAS:QN: 94.0 U/L Normal 06/04/2024 30 - 146 [facility] GLOBULIN:MCNC:PT:SER:QN :CALCULATED 2.4 g/dL Normal 06/04/2024 1.8 - 3.4 [facility] ASPARTATE AMINOTRANSFERASE:CCNC:P T:SER/PLAS:QN:WITH P-5'-P 24.0 U/L Normal 06/04/2024 10 - 50 [facility] ALBUMIN/GLOBULIN:MRTO:P T:SER/PLAS:QN: 1.7 Normal 06/04/2024 1.1 - 2.5 [facility] GLUCOSE:MCNC:PT:SER/DAMION S:QN: 120.0 mg/dL Above high normal 06/04/2024 70 - 99 [facility] CREATININE:MCNC:PT:SER/ PLAS:QN: 1.04 mg/dL Normal 06/04/2024 0.5 - 1.04 [facility] THYROTROPIN:ACNC:PT:SER /PLAS:QN:DETECTION LIMIT <= 0.005 MIU/L 2.15 mIU/L Normal 06/04/2024 0.27 - 4.2 [facility] GRANULOCYTES.IMMATURE:N CNC:PT:BLD:QN:AUTOMATED COUNT 0.01 x10(9)/L Normal 06/04/2024 0 - 0.1 [facility] MONOCYTES:NCNC:PT:BLD:Q N:AUTOMATED COUNT 0.49 x10(9)/L Normal 06/04/2024 0 - 1 [facility] MONOCYTES/100 LEUKOCYTES:NFR:PT:BLD:Q N:AUTOMATED COUNT 8.2 % Normal 06/04/2024 4 - 12 [facility] NEUTROPHILS:NCNC:PT:BLD :QN:AUTOMATED COUNT 3.59 x10(9)/L Normal 06/04/2024 2 - 7.5 [facility] LYMPHOCYTES:NCNC:PT:BLD :QN:AUTOMATED COUNT 1.64 x10(9)/L Normal 06/04/2024 1 - 4 [facility] BASOPHILS/100 LEUKOCYTES:NFR:PT:BLD:Q N:AUTOMATED COUNT 1.5 % Normal 06/04/2024 0 - 2 [facility] BASOPHILS:NCNC:PT:BLD:Q N:AUTOMATED COUNT 0.09 x10(9)/L Normal 06/04/2024 0 - 0.2 [facility] EOSINOPHILS/100 LEUKOCYTES:NFR:PT:BLD:Q N:AUTOMATED COUNT 2.3 % Normal 06/04/2024 0 - 7 [facility] LYMPHOCYTES/100 LEUKOCYTES:NFR:PT:BLD:Q N:AUTOMATED COUNT 27.5 % Normal 06/04/2024 20 - 45 [facility] NEUTROPHILS/100 LEUKOCYTES:NFR:PT:BLD:Q N:AUTOMATED COUNT 60.3 % Normal 06/04/2024 40 - 75 [facility] GRANULOCYTES.IMMATURE/1 00 LEUKOCYTES:NFR:PT:BLD:Q N:AUTOMATED COUNT 0.2 % Normal 06/04/2024 0 - 0.9 [facility] EOSINOPHILS:NCNC:PT:BLD :QN:AUTOMATED COUNT 0.14 x10(9)/L Normal 06/04/2024 0 - 0.5 [facility] HEMOGLOBIN:MCNC:PT:BLD: QN: 12.7 g/dL Normal 06/04/2024 12 - 16 [facility] ERYTHROCYTE DISTRIBUTION WIDTH:ENTVOL:PT:RBC:QN: AUTOMATED COUNT 40.2 fL Normal 06/04/2024 35 - 47 [facility] LEUKOCYTES:NCNC:PT:BLD: QN:AUTOMATED COUNT 6.0 x10(9)/L Normal 06/04/2024 3.5 - 10 [facility] PLATELETS:NCNC:PT:BLD:Q N:AUTOMATED COUNT 226.0 x10(9)/L Normal 06/04/2024 150 - 400 [facility] ERYTHROCYTES:NCNC:PT:BL D:QN:AUTOMATED COUNT 4.47 x10(12)/L Normal 06/04/2024 3.8 - 5.2 [facility] ERYTHROCYTE DISTRIBUTION WIDTH:RATIO:PT:RBC:QN:A UTOMATED COUNT 13.0 % Normal 06/04/2024 11.5 - 15 [facility] HEMATOCRIT:VFR:PT:BLD:Q N:AUTOMATED COUNT 38.1 % Normal 06/04/2024 35 - 46 [facility] ERYTHROCYTE MEAN CORPUSCULAR HEMOGLOBIN:ENTMASS:PT:R BC:QN:AUTOMATED COUNT 28.4 pg Normal 06/04/2024 25 - 34 [facility] PLATELET MEAN VOLUME:ENTVOL:PT:BLD:QN :AUTOMATED COUNT 11.2 fL Normal 06/04/2024 9.3 - 13 [facility] ERYTHROCYTE MEAN CORPUSCULAR HEMOGLOBIN CONCENTRATION:MCNC:PT:R BC:QN:AUTOMATED COUNT 33.3 g/dL Normal 06/04/2024 31 - 36 [facility] ERYTHROCYTE MEAN CORPUSCULAR VOLUME:ENTVOL:PT:RBC:QN :AUTOMATED COUNT 85.2 fL Normal 06/04/2024 80 - 99 [facility] ERYTHROCYTES.NUCLEATED/ 100 LEUKOCYTES:RATIO:PT:BLD :QN:AUTOMATED COUNT 0.0 /100(WBCs) Normal 06/04/2024 [facility] History of Medication Use Medication Directions Dispensed Refills Start Date End Date Stat gabapentin Oral, 0 Refill(s) 06/04/2024 Ordered minoxidil Oral, BID, 0 Refill(s) 06/04/2024 Ordered atenolol 50 mg oral tablet See Instructions, TAKE 1 TABLET BY MOUTH DAILY, # 90 tab, 3 Refill(s), [facility] 170, cm, 01/11/22 13:14:00 EDT, Height/Length Measured, 71.2, kg, 01/11/22 13:14:00 EDT, Weight Dosing 03/14/2022 Ordered atenolol 50 mg oral tablet 1 tab, Oral, Daily, # 90 tab, 1 Refill(s), Pharmacy: [facility], 169, cm, 04/23/21 11:27:00 EST, Height/Length Measured, 74.4, kg, 04/23/21 11:27:00 EST, Weight Dosing 09/25/2021 Ordered hydroCHLOROthiazide 25 mg oral tablet 1 tab, Oral, Daily, # 90 tab, 0 Refill(s), Pharmacy: [facility], 169, cm, 05/02/23 14:24:00 EST, Height/Length Measured, 68.3, kg, 05/02/23 14:26:00 EST, Weight Dosing 09/25/2021 Ordered losartan 100 mg oral tablet 1 tab, Oral, Daily, # 90 tab, 3 Refill(s), Pharmacy: [facility], 169, cm, 05/02/23 14:24:00 EST, Height/Length Measured, 68.3, kg, 05/02/23 14:26:00 EST, Weight Dosing 09/25/2021 Ordered clobetasol 0.05% topical cream 1 alexa, Topical, BID, # 60 g, 1 Refill(s), Pharmacy: [facility]/pharmacy #[id number], 170, cm, 08/28/20 8:49:00 EDT, Height/Length Measured, 74.5, kg, 08/28/20 8:49:00 EDT, Weight Dosing 08/28/2020 Ordered aspirin 81 mg =, Oral, Daily, 0 Refill(s) 08/25/2020 Ordered buPROPion 100 mg/12 hours (SR) oral tablet, extended release 1 tab, Oral, BID, 1 TAB(S) UP TO 2 TIMES A DAY. per Alix Quintanilla 12/16/2018 Ordered buPROPion 100 mg/12 hours (SR) oral tablet, extended release 1 tab, Oral, BID, 1 TAB(S) UP TO 2 TIMES A DAY. per Alix Quintanilla 12/16/2018 Ordered Paxil 40 mg oral tablet 1 tab, Oral, Daily, # 30 tab, 0 Refill(s) 02/20/2018 Ordered Paxil 40 mg oral tablet 1 tab, Oral, Daily, # 30 tab, 0 Refill(s) 02/20/2018 Ordered Allergies Allergen Reaction Severity Comment Documented Date Source Statu s PENICILLINS<SUP>1</SUP> RASH [facility] Problems Problem Status Onset Date Problem Type Date of Resoluti on Source Mitral valve regurgitation (disorder) active ProblemAct [facility] Otalgia (disorder) active ProblemAct [facility] Recurrent falls (finding) active ProblemAct [facility] Mixed anxiety and depressive disorder (disorder) active ProblemAct [facility] Hypertensive disorder, systemic arterial (disorder) active ProblemAct [facility] At risk for falls (finding) active ProblemAct [facility] Overweight (finding) active ProblemAct [facility] Mood disorder (disorder) active ProblemAct [facility] Obstructive sleep apnea syndrome (disorder) active ProblemAct [facility] Microscopic hematuria (disorder) active ProblemAct [facility] Weight fluctuates (finding) active ProblemAct [facility] Dysuria (finding) active ProblemAct C [facility] Renal infarction (disorder) active ProblemAct [facility] Hypercholesterolemia (disorder) active ProblemAct [facility] History of polyp of colon (situation) active ProblemAct [facility] Parotid swelling (finding) active ProblemAct [facility] Acute renal insufficiency (disorder) active ProblemAct [facility] Dyspnea (finding) active ProblemAct C [facility] Wandering atrial pacemaker (finding) active ProblemAct [facility] Hyperglycemia (disorder) active ProblemAct [facility] Cough (finding) active ProblemAct [facility] Daytime somnolence (finding) active ProblemAct [facility] Hand pain (finding) active ProblemAct [facility] Liver function tests abnormal (finding) active ProblemAct [facility] Intermittent claudication (disorder) active ProblemAct [facility] Acute renal impairment (disorder) active ProblemAct [facility] Impaired fasting glycaemia (disorder) active ProblemAct [facility] Posterior rhinorrhea (disorder) active ProblemAct [facility] Immunizations Vaccine Date Source Lot Number Status tetanus toxoid 05/15/2022 [facility] UNK completed influenza virus vaccine, inactivated 01/11/2022 [facility] [id number] completed SARS-CoV-2 (COVID-19) mRNA-1273 vaccine 07/22/2021 [facility] [id number] completed zoster vaccine, inactivated 06/05/2021 [facility] [id number] completed zoster vaccine, inactivated 02/28/2021 [facility] [id number] completed influenza virus vaccine, inactivated 02/20/2021 [facility] [id number] completed SARS-CoV-2 (COVID-19) mRNA-1273 vaccine 01/23/2021 [facility] [id number] completed SARS-CoV-2 (COVID-19) mRNA-1 273 vaccine<sup>1</sup> 06/10/2020 [facility] UNK completed SARS-CoV-2 (COVID-19) mRNA-1 273 vaccine<sup>2</sup> 05/13/2020 [facility] UNK completed pneumococcal 23-polyvalent [id number] completed tetanus toxoid 03/06/2020 [facility] UNK completed zoster vaccine live 03/06/2020 [facility] UNK compl eted influenza virus vaccine, inactivated 12/24/2019 [facility] [id number] completed influenza virus vaccine, inactivated 12/16/2018 [facility] [id number] completed pneumococcal 13-valent conjugate vaccine 06/15/2018 [facility] [id number] completed influenza virus vaccine, inactivated 01/20/2018 [facility] [id number] completed influenza virus vaccine, inactivated 01/15/2017 [facility] [id number] completed influenza vaccine (misc)<sup>3</sup> 12/22/2014 [facility] UNK completed influenza vaccine (misc) 01/07/2013 [facility] [id number] completed Encounters Encounter Type Encounter Reason Primary Diagnosis Location Date Ambulatory [facility] 06/04/2024 Ambulatory 1 yr fu - RESCHEDULE D FROM 03/30/24 [facility] 06/04/2024 Ambulatory BACK PAIN [facility] 05/02/2023 Ambulatory 6m [facility] 02/27/2023 Ambulatory [facility] 01/31/20 23 Ambulatory [facility] 07/25/2022 Ambulatory [facility] dical Practices 05/15/2022 Ambulatory [facility] Laboratory 05/11/2022 Ambulatory [facility] 02/02/20 Ambulatory [facility] 01/11/2022 Ambulatory [facility] dical Practices 01/11/2022 Ambulatory [facility] dicpa Practices 10/11/2021 Ambulatory [facility] Practices 08/14/2021 Ambulatory [facility] 05/23/19 22 Care Team Organization Name Specialty Phone Email Start Date End Da te [facility] 05/11/19 23 [facility] 01/22 [facility] Primary Care 01/11/2022 [facility] Primary Care 08/14/2021 01/11/2022 [facility] Primary Care 02/01/2022
== END 2024-12-20 09:57 | disposition home or self-care (01) ==
LOC: HO.HSMS 08:43
PROVIDERS: PCP Internal Medicine; Visit Provider Psychiatry & Neurology Neurology
DX: G25.5 Other chorea (principal); R06.83 Snoring
CPT/HCPCS: 99204

== ENCOUNTER 2024-12-23 15:25 | Outpatient (REF) | payer OTHER, SELFPAY ==
--- OUTSIDE RECORDS SUMMARY | 2024-12-23 16:42 | XMS_ITS | Encounter Summary ---
Author Organization [facility] Address [address] [facility] [address] [place] [address] Phone Care Team Providers Care Hide And Skin Classer Name Role Phone Eliza Tavera SPORTS INFORMATION DIRECTOR Primary Care Provider [phone] Akilah Mary MD Primary Care Provider [phone] Zeenat Santana MD Primary Care Provider [phone] Encounter Details Date Type Department Care Team (Late st Contact Info) Description 02/05/2024 Procedure Pass [address] [place] [address] Social History Tobacco Use Types Packs/Day Years [...] Description 03/09/2025 1:00 PM EST Office Visit [facility] [address] [place], [place] [id number] Audra Blair, PhD [address] [place] [address] MARIA [email or web address] 03/22/2025 1:00 PM EST Telemedicine [facility] 55 [facility], 8th Floor, [address] [place] [address] Gianni Forbes FNP 55 [facility] 835 [place] [address] [email or web address] 04/05/2025 1:00 PM EST Office Visit [facility] [address] [place] [address] [place] [address] Zeenat Santana MD [address] [place] [address] [email or web address] documented as of this encounter Visit Diagnoses Not on filedocumented in this encounter Care Teams Hide And Skin Classer Relationship Specialty Start Date End Date Eliza Tavera FNP [address] [address] [email or web address] PCP - General Nurse Practitioner 10/27/23 05/13/24 Akilah Mary MD 15 [facility] [address] [place] [address] PCP - General Family Medicine 05/14/24 12/01/24 Zeenat Sanatna MD [address] [place] [address] [email or web address] PCP - General Internal Medicine 12/02/24 documented as of this encounter Additional Source Comments The information contained in this document represents components of the legal health record. It is not the complete legal health record.[facility]
--- OUTSIDE RECORDS SUMMARY | 2024-12-23 16:42 | XMS_ITS | Encounter Summary ---
Author Organization [facility] Address [address] [facility] [address] [place] [address] Phone Care Team Providers Care Vibration Engineer Name Role Phone Eliza Tavera CHAR CONVEYOR TENDER CELLAR Primary Care Provider [phone] Akilah Mary MD Primary Care Provider [phone] Zeenat Santana MD Primary Care Provider [phone] Encounter Details Date Type Department Care Team (Late st Contact Info) Description 11/11/2023 Procedure Pass [facility] [address] [place] [address] Social History Tobacco Use Types Packs/Day Years [...] Description 03/09/2025 1:00 PM EST Office Visit [facility] [address] [place] [address] Audra Blair, PhD 55 [facility] [address] [place] [address] MARIA [email or web address] 03/22/2025 1:00 PM EST Telemedicine [facility] 55 [facility], 8th Floor, [address] [place] [address] Gianni Forbes FNP 55 [facility] 835 [place] [address] [email or web address] 04/05/2025 1:00 PM EST Office Visit [facility] [address] [place] [address] [place] [address] Zeenat Santana MD [address] [place] [address] [email or web address] documented as of this encounter Visit Diagnoses Not on filedocumented in this encounter Care Teams Vibration Engineer Relationship Specialty Start Date End Date Eliza Tavera FNP [address] [place] [address] [email or web address] PCP - General Nurse Practitioner 10/27/23 05/13/24 Akilah Mary MD [address] [place] [address] PCP - General Family Medicine 05/14/24 12/01/24 Zeenat Santana MD [address] [place] [address] [email or web address] PCP - General Internal Medicine 12/02/24 documented as of this encounter Additional Source Comments The information contained in this document represents components of the legal health record. It is not the complete legal health record.[facility]
--- OUTSIDE RECORDS SUMMARY | 2024-12-23 16:42 | XMS_ITS | Clinical Summary ---
Author Organization [address] Address [address] [place] [phone] Phone Care Team Providers Care Sanitation Inspector Name Role Phone Unavailable Primary Care Provider [...] 9:00 AM EST Evaluation [facility] [address] [place] [address] Morris Sanchez MD [address] [place] [phone] Trinidad Carrizales PsyD [address] [place] [address] [phone] Health Maintenance Due Date Last Done Comments [...] patient's age to complete this topic Insurance [facility]
--- OUTSIDE RECORDS SUMMARY | 2024-12-23 16:42 | XMS_ITS | Encounter Summary ---
Author Organization [facility] Address [address] [facility] [address] [place] [address] Phone Care Team Providers Care Scruff Worker Name Role Phone Pcp, Unknown Primary Care Provider Eliza Hyde Primary Care Provider [phone] Akilah Mary MD Primary Care Provider [phone] Zeenat Santana MD Primary Care Provider [phone] Encounter Details Date Type Department Care Team (Late st Contact Info) Description 07/14/2023 Procedure Pass [facility] Ct Scan - [address] [address] Social History Tobacco Use Types Packs/Day Years [...] AM EDT Tasneem Pearce ma, RN * [place] Suicide Severity Rating Scale (Screener/Recent Self-Report) Question [...] Description 03/09/2025 1:00 PM EST Office Visit [facility] 1 [facility] 7th [place] [address] Audra Blair, PhD [address] [place] [address] [address] [place] [address] MARIA [email or web address] 03/22/2025 1:00 PM EST Telemedicine [facility] [address] [place] [address], 8th Floor, [address] [place] [address] Gianni Forbes FNP [address] [place] [address] [address] [address] [email or web address] 04/05/2025 1:00 PM EST Office Visit [facility] [address] [place] [address] [place] [address] Zeenat Santana MD [address] [place] [address], 2nd [place] [address] documented as of this encounter Visit Diagnoses Not on filedocumented in this encounter Care Teams Scruff Worker Relationship Specialty Start Date End Date Pcp, Unknown PCP - General 07/14/23 10/26/23 Eliza Tavera FNP [address] [address] [email or web address] PCP - General Nurse Practitioner 10/27/23 05/13/24 Akilah Mary MD [address] [address] PCP - General Family Medicine 05/14/24 12/01/24 Zeenat Santana MD [address] [place] [address], 2nd [place] [address] PCP - General Internal Medicine 12/02/24 documented as of this encounter Additional Source Comments The information contained in this document represents components of the legal health record. It is not the complete legal health record.[facility]
--- OUTSIDE RECORDS SUMMARY | 2024-12-23 16:42 | XMS_ITS | Encounter Summary ---
Author Organization [facility] Address [address] [facility] [address] [place] [address] Phone Care Team Providers Care Tandem Mill Operator Name Role Phone Pcp, Unknown Primary Care Provider Eliza Hyde Primary Care Provider [phone] Akilah Mary MD Primary Care Provider [phone] Zeenat Santana MD Primary Care Provider [phone] Encounter Details Date Type Department Care Team (Late st Contact Info) Description 07/14/2023 Procedure Pass [facility], Ct Scan - [address] [address] Social History Tobacco Use Types Packs/Day Years [...] AM EDT Tasneem Pearce ma, RN * [place] Suicide Severity Rating Scale (Screener/Recent Self-Report) Question [...] Description 03/09/2025 1:00 PM EST Office Visit [facility] Psychology Assessment Center 1 [facility] 7th [place] [address] Audra Blair, PhD [address] [place] [address] [address] [place] [address] MARIA [email or web address] 03/22/2025 1:00 PM EST Telemedicine [facility] Sleep Disorders Unit [address] [place] [address], 8th Floor, [address] [place] [address] Gianni Forbes FNP [address] [place] [address] [address] [address] [email or web address] 04/05/2025 1:00 PM EST Office Visit [facility] [address] [place] [address] [place] [address] Zeenat Santana MD [address] [place] [address], 2nd [place] [address] documented as of this encounter Visit Diagnoses Not on filedocumented in this encounter Care Teams Tandem Mill Operator Relationship Specialty Start Date End Date Pcp, Unknown PCP - General 07/14/23 10/26/23 Eliza Tavera FNP [address] [address] [email or web address] PCP - General Nurse Practitioner 10/27/23 05/13/24 Akilah Mary MD [address] [address] PCP - General Family Medicine 05/14/24 12/01/24 Zeenat Santana MD [address] [place] [address], 2nd [place] [address] PCP - General Internal Medicine 12/02/24 documented as of this encounter Additional Source Comments The information contained in this document represents components of the legal health record. It is not the complete legal health record.[facility]
--- OUTSIDE RECORDS SUMMARY | 2024-12-23 16:43 | XMS_ITS | Encounter Summary ---
Author Organization [facility] Address [address] [facility] [address] [place] [address] Phone Care Team Providers Care Senior Analyst Name Role Phone Akilah Mary MD Primary Care Provider [phone] Zeenat Santana MD Primary Care Provider [phone] Encounter Details Date Type Department Care Team (Late st Contact Info) Description 07/26/2024 Procedure Pass MRI, [facility] [address] [place] [address] Social History Tobacco Use Types Packs/Day Years [...] Description 03/09/2025 1:00 PM EST Office Visit [facility] [address] [place] [address] Audra Blair, PhD [address] [place] [address] MARIA [email or web address] 03/22/2025 1:00 PM EST Telemedicine [facility] Sleep Disorders Unit 55 [facility], 8th Floor, [address] [place] [address] Gianni Forbes FNP 55 [facility] 835 [place] [address] [email or web address] 04/05/2025 1:00 PM EST Office Visit [facility] [address] [place] [address] [place] [address] Zeenat Santana MD [address] [place] [address], [address] [place] [address] [email or web address] documented as of this encounter Visit Diagnoses Not on filedocumented in this encounter Care Teams Senior Analyst Relationship Specialty Start Date End Date Akilah Mary MD 15 [facility] [place] [address] [email or web address] PCP - General Family Medicine 05/14/24 12/01/24 Zeenat Santana MD [address] [place] [address], [address] [place] [address] PCP - General Internal Medicine 12/02/24 documented as of this encounter Additional Source Comments The information contained in this document represents components of the legal health record. It is not the complete legal health record.[facility]
--- OUTSIDE RECORDS SUMMARY | 2024-12-23 16:43 | XMS_ITS | Encounter Summary ---
Author Organization [facility] Address [address] [facility] [address] [place] [address] Phone Care Team Providers Care Field Sales Agent Name Role Phone Akilah Mary MD Primary Care Provider [phone] Zeenat Santana MD Primary Care Provider [phone] Encounter Details Date Type Department Care Team (Late st Contact Info) Description 07/26/2024 Procedure Pass MRI, [facility] [place] [address] [place] [address] Social History Tobacco Use Types Packs/Day Years [...] Description 03/09/2025 1:00 PM EST Office Visit [facility] Assessment [facility] [address] [place] [address] Audra Blair, PhD [address] [place] [address] MARIA [email or web address] 03/22/2025 1:00 PM EST Telemedicine [facility] Sleep Disorders Unit 55 [facility], 8th Floor, [address] [place] [address] Gianni Forbes FNP 55 [facility] 835 [place] [address] [email or web address] 04/05/2025 1:00 PM EST Office Visit [facility] [address] [place] [address] [place] [address] Zeenat Santana MD [address] [place] [address], [address] [place] [address] [email or web address] documented as of this encounter Visit Diagnoses Not on filedocumented in this encounter Care Teams Field Sales Agent Relationship Specialty Start Date End Date Akilah Mary MD 15 [facility] [address]. [address] [place] [address] [email or web address] PCP - General Family Medicine 05/14/24 12/01/24 Zeenat Santana MD [address] [place] [address], [address] [place] [address] PCP - General Internal Medicine 12/02/24 documented as of this encounter Additional Source Comments The information contained in this document represents components of the legal health record. It is not the complete legal health record.[facility]
--- OUTSIDE RECORDS SUMMARY | 2024-12-23 16:43 | XMS_ITS | Clinical Summary ---
Author Organization [facility] Address [address] [facility] [address] [place] [address] Phone Care Team Providers Care Cosmetology Teacher Name Role Phone Max Zeenat Mary CAMPOS Primary Care Provider [phone] Allergies Active Allergy Reactions Criticality Noted Date [...] PM EDT Hospital Encounter [facility] [address] [place] [address] Morris Sanchez MD Discharge Disposition: Home or Self Care 12/02/2024 10:00 AM EDT Office Visit [facility] [address] [place] [address] Zeenat Santana MD Essential hypertension (Primary Dx); Cardiomyopathy, unspecified type; Memory loss; Involuntary movements; Depression with anxiety 10/18/2024 2:33 PM EDT - 10/18/2024 11:59 PM EDT Hospital Encounter [facility] [address] [address] Damion Tavera FNP Discharge Disposition: Home or Self Care [...] Description 03/09/2025 1:00 PM EST Office Visit [facility] Psychology Assessment Center [address] [place] [address] 7th [place] [address] Audra Blair, PhD [address] [place] [address] [address] [place] [address] MARIA [email or web address] 03/22/2025 1:00 PM EST Telemedicine [facility] Sleep Disorders Unit [address] [place] [address], 8th Floor, [address] [place] [address] Gianni Forbes FNP [address] [place] [address] [facility] [address] [place] [address] [email or web address] 04/05/2025 1:00 PM EST Office Visit [facility] [address] [place] [address] [place] [address] Zeenat Santana MD [address] [place] [address], 2nd [place] [address] Health Maintenance Due Date Last Done Comments [...] 10:44 AM EDT) IGG Immunoblot Negative Negative [facility]PATH [address] IGG BANDS (KDA) p23 kDa [facility]PATH [address] DR IGM Immunoblot Negative Negative [facility]/PATH [address] DR IGM BANDS (KDA) p41 kDa [facility]/PATH [address] Interpretation - Lyme SEE NOTE [facility] [address] Comment: (NOTE) Specific [...] MD LAB BLOOD ORDERABLES Final Res ult [facility] [place] [address] * (ABNORMAL) Lyme Screen with Reflex to Immunoblot, Blood (12/02/2024 10:44 AM EDT) Lyme AB IgG Negative Negative [facility] Lyme AB IgM Equivocal(A) Negative [facility] Comment:The Lyme Disease Ant ibody, Confirmation, Serum (Western Blot) has been reflexed. The results will follow. Blood 12/02/2024 10:4 4 AM EDT 12/02/2024 10:50 AM EDT us Morris Sanchez MD LAB BLOOD ORDERABLES Final Res ult [address] [address] * (ABNORMAL) Comprehensive metabolic panel (12/02/2024 10:44 AM EDT) SODIUM 144 133 - 146 mmol/L [facility] POTASSIUM 4.6 3.3 - 5.1 mmol/L [facility] CHLORIDE 105 96 - 108 mmol/L [facility] CO2 28 21 - 35 mmol/L [facility] BUN 15 6 - 19 mg/dL [facility] CREATININE 1.00 0.5 - 1.5 mg/dL [facility] GLUCOSE 110(H) 70 - 99 mg/dL [facility] ALBUMIN 4.1 3.9 - 4.8 g/dL [facility] TOTAL PROTEIN 7.1 6.5 - 8.0 g/dL [facility] CALCIUM 10.4(H) 8.4 - 10.3 mg/dL [facility] ALKALINE PHOSPHATASE 111 39 - 117 U/L [facility] TOTAL BILIRUBIN 0.3 0.0 - 1.2 mg/dL [facility] AST 33 0 - 37 U/L [facility] ALT 22 0 - 40 U/L [facility] GLOBULIN 3.0 1 - 4.8 g/dL [facility] EGFR 60 >59 mL/min/1.7 3m2 [facility] Comment:Estimated glomerular filtration rate calculated using the CKD-EPI refit equation. ANION GAP 16 10 - 20 mmol/L [facility] Blood 12/02/2024 10:4 4 AM EDT 12/02/2024 10:50 AM EDT us Morris Sanchez MD LAB BLOOD ORDERABLES Final Res ult [address] [address] * TSH with reflex (12/02/2024 10:44 AM EDT) TSH 2.65 0.27 - 4.20 uIU/mL [facility] Blood 12/02/2024 10:4 4 AM EDT 12/02/2024 10:50 AM EDT Morris Sanchez MD LAB BLOOD ORDERABLES Final Res ult Performing Organization Address City/[facility]/ZIP Co de Phone Number [address] [address] * Syphilis antibody screen (12/02/2024 10:44 AM EDT) RPR NON-REACTIV E NON-REACTI VE [facility] Blood 12/02/2024 10:4 4 AM EDT 12/02/2024 10:50 AM EDT Morris Sanchez MD LAB BLOOD ORDERABLES Final Res ult Performing Organization Address [facility] Co de Phone Number [address] [address] * 25-OH vitamin D (12/02/2024 10:44 AM EDT) 25 OH VIT D (TOTAL) 48 30 - 60 ng/mL [facility] Blood 12/02/2024 10:4 4 AM EDT 12/02/2024 10:50 AM EDT Morris Sanchez MD LAB BLOOD ORDERABLES Final Res ult Performing Organization Address City/[facility] Co de Phone Number [address] [address] * Sedimentation rate (ESR) (12/02/2024 10:44 AM EDT) ESR 29 0 - 30 mm/h [facility] Blood 12/02/2024 10:4 4 AM EDT 12/02/2024 10:50 AM EDT Morris Sanchez MD LAB BLOOD ORDERABLES Final Res ult [facility] [address] [place] [address] * CBC and differential (12/02/2024 10:44 AM EDT) WBC 6.47 4.00 - 11.00 K/uL [facility] RBC 4.67 4.00 - 5.20 M/uL [facility] HGB 13.1 12.0 - 16.0 g/dL [facility] HCT 40.7 36.0 - 46.0 % [facility] PLT 222 150 - 450 K/uL [facility] MCV 87.2 80.0 - 100.0 fL [facility] MCH 28.1 27.0 - 31.0 pg [facility] MCHC 32.2 32.0 - 36.0 g/dL [facility] RDW 13.2 11.5 - 14.5 % [facility] MPV 11.7 8.4 - 12.0 fL [facility] NRBC 0.00 0.00 /100 WBCs [facility] ABSOLUTE NRBC 0.00 0.00 K/uL [facility] DIFF METHOD Auto [facility] NEUTS 54.1 48.0 - 76.0 % [facility] LYMPHS 33.1 18.0 - 41.0 % [facility] MONOS 8.0 4.0 - 11.0 % [facility] EOS 3.2 0.0 - 5.0 % [facility] BASOS 1.4 0.0 - 1.5 % [facility] Granulocytes, immature (%) 0.2 0.0 - 0.9 % [facility] ABSOLUTE NEUTS 3.50 1.92 - 7.60 K/uL [facility] ABSOLUTE LYMPHS 2.14 0.72 - 4.10 K/uL [facility] ABSOLUTE MONOS 0.52 0.16 - 1.10 K/uL [facility] ABSOLUTE EOS 0.21 0.00 - 0.50 K/uL [facility] ABSOLUTE BASOS 0.09 0.00 - 0.15 K/uL [facility] Granulocytes, immature 0.01 0.00 - 0.09 K/uL [facility] Blood 12/02/2024 10:4 4 AM EDT 12/02/2024 10:50 AM EDT us Morris Sanchez MD LAB BLOOD ORDERABLES Final Res ult Performing Organization Address City/[facility]/ZIP Co de Phone Number [address] [address] * Folate (12/02/2024 10:44 AM EDT) FOLIC ACID 11.0 4.2 - 19.9 ng/mL [facility] Blood 12/02/2024 10:4 4 AM EDT 12/02/2024 10:50 AM EDT us Morris Sanchez MD LAB BLOOD ORDERABLES Final Res ult Performing Organization Address [facility]/ZIP Co de Phone Number [address] [address] * Vitamin B12 (12/02/2024 10:44 AM EDT) VITAMIN B12 281 232 - 1,245 pg/mL [facility] Blood 12/02/2024 10:4 4 AM EDT 12/02/2024 10:50 AM EDT Morris Sanchez MD LAB BLOOD ORDERABLES Final Res ult Performing Organization Address [facility] Co de Phone Number [address] [address] * BD DXA AXIAL (SPINE) WITH HIP (10/18/2024 2:48 PM EDT) Anatomical Region Laterality Modality Bone Density Bone Density 10/18/2024 2:47 PM EDT Impressions 10/19/2024 12:17 PM EDT Interpretation: Osteopenia. Narrative 10/19/2024 12:17 PM EDT Referred By: DAMION TAVERA Indications: Postmenopausal Scanner: [employer] A with serial# of [id number] located at [facility] Bone Density Scan (DXA) 10/18/24 Details of [...] -2.5), or Osteoporosis (T-score <= -2.5). At [facility], T-scores are compared to peak bone density [...] Lockhart MD - 10/19/2024 Referred By: DAMION TAVERA Indications: Postmenopausal Scanner: [employer] A with serial# of [id number] located at [facility] Bone Density Scan (DXA) 10/18/24 Details of [...] -2.5), or Osteoporosis (T-score <= -2.5). At [facility], T-scores are compared to peak bone density [...] results. IMPRESSION: Interpretation: Osteopenia. us Damion [employer]ined[employer] STOVE FITTER IMG BD BONE DENSITY DEXA Fi nal [...] notified of the results and recommendations. Damion Tavera STOVE FITTER IMG MG EXAMS Final Resul t from Last 3 Months or Most Recently Relevant to Health Maintenance Insurance [facility] MEDICARE REPLACEMENT [facility] MEDIC[facility] REPLACEMENT [facility] MEDICARE REPLACEMENT [facility] MEDICARE [facility]PLACEMENT [facility] MEDICARE REPLACEMENT [facility] [place] [address] Care Teams Cosmetology Teacher Relationship Specialty Start Date End Date Zeenat Santana MD [address] [place] [address], 2nd [place] [address] [email or web address] PCP - General Internal Medicine 12/02/24 Additional Source Comments The information contained in this document represents components of the legal health record. It is not the complete legal health record.[facility]
--- OUTSIDE RECORDS SUMMARY | 2024-12-23 16:43 | XMS_ITS | Encounter Summary ---
Author Organization [facility] Address [address] [facility] [address] [place] [address] Phone Care Team Providers Care Travel Agent Name Role Phone Eliza Tavera Primary Care Provider Akilah Mary MD Primary Care Provider [phone] Zeenat Santana MD Primary Care Provider Reason for Visit * Reason Onset Date Comments Leg Pain 02/05/2024 Red Encounter Details Date Type Department Care Team (Late st Contact Info) Description 02/05/2024 Nurse Triage [facility] [address] [place] [address] Eliza Tavera FNP [address] [facility] [address] [place] [address] [email or web address] Leg Pain (Red/) Social History Tobacco Use [...] (i.e., loss of sensation) Protocols used: Leg Weot-[id number]-BU * Vandana Portillo - 02/05/2024 10:45 AM EST Pt called stating has unbearable leg pain in left leg.Please contact and advise. Central Support Licensed Architect (Please do not reply to this user; this inbox is not monitored.) Thank you. documented in this encounter Plan of Treatment Upcoming Encounters Date Type Department Care Team (Late st Contact Info) Description 03/09/2025 1:00 PM EST Office Visit [facility] [address] [facility] 7th [place] [address] Audra Blair, PhD [address] [facility] [address] [place] [address] MARIA [email or web address] 03/22/2025 1:00 PM EST Telemedicine [facility] Sleep Disorders Unit [address] [facility], 8th Floor, [address] [place] [address] Gianni Forbes FNP [address] [facility] 8[address] [place] [address] [email or web address] 04/05/2025 1:00 PM EST Office Visit [facility] [address] [place] [address] [place] [address] Zeenat Santana MD [address] [place] [address] [email or web address] documented as of this encounter Visit Diagnoses Not on filedocumented in this encounter Care Teams Travel Agent Relationship Specialty Start Date End Date Eliza Tavera FNP [address] [place] [address] [email or web address] PCP - General Nurse Practitioner 10/27/23 05/13/24 Akilah Mary MD [address] [address] PCP - General Family Medicine 05/14/24 12/01/24 Zeenat Santana MD [address] [place] [address] [email or web address] PCP - General Internal Medicine 12/02/24 documented as of this encounter Additional Source Comments The information contained in this document represents components of the legal health record. It is not the complete legal health record.[facility]
== END 2024-12-23 15:26 | disposition home or self-care (01) ==
LOC: HO.LAB 15:25
PROVIDERS: PCP Internal Medicine; Visit Provider Psychiatry & Neurology Neurology
DX: G25.5 Other chorea (principal); G47.33 Obstructive sleep apnea (adult) (pediatric)
CPT/HCPCS: 36415

== ENCOUNTER 2025-01-31 10:25 | Outpatient (AMB) | payer OTHER, SELFPAY ==
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
[2025-01-31 10:27] VITALS: BP 122/60; PULSE 62; O2SAT 98; BMI 23.0
--- OUTSIDE RECORDS SUMMARY | 2025-01-31 12:12 | XMS_ITS | Encounter Summary ---
Author Organization [facility] Address [address] [facility] [address] [place] [address] Phone Care Team Providers Care Operations Developer Name Role Phone Eliza Tavera Primary Care Provider Akilah Mary MD Primary Care Provider [phone] Zeenat Santana MD Primary Care Provider [phone] Reason for Visit * Reason Onset Date Comments Leg Pain 02/05/2024 Red Encounter Details Date Type Department Care Team (Late st Contact Info) Description 02/05/2024 Nurse Triage [facility] [address] [place] [address] Eliza Tavera FNP 15 [facility] [address] [place] [address] [email or web address] Leg Pain (Red/) Social History Tobacco Use [...] Triage Encounter Note Reason for Triage Estefania oCronado contacted office for Leg Pain Red Call [...] (i.e., loss of sensation) Protocols used: Leg Fmzd-[id number] * Vandana Portillo - 02/05/2024 10:45 AM EST Pt called stating has unbearable leg pain in left leg.Please contact and advise. Central Support Associate Professor Of Psychology (Please do not reply to this user; this inbox is not monitored.) Thank you. documented in this encounter Plan of Treatment Upcoming Encounters Date Type Department Care Team (Late st Contact Info) Description 03/09/2025 1:00 PM EST Office Visit [facility] Psychology Assessment Center 1 [facility] 7th [place] [address] Audra Blair, PhD [address] [facility] [address] [place] [address] MARIA [email or web address] 03/22/2025 1:00 PM EST Telemedicine [facility] Sleep Disorders Unit 55 [facility], 8th Floor, [address] [place] [address] Gianni Forbes FNP [address] [facility] 8[address] [place] [address] [email or web address] 04/05/2025 1:00 PM EST Office Visit [facility] [address] [place] [address] [place] [address] Zeenat Santana MD [address] [place] [address] [email or web address] documented as of this encounter Visit Diagnoses Not on filedocumented in this encounter Care Teams Operations Developer Relationship Specialty Start Date End Date Eliza Tavera FNP [address] [place] [phone] [email or web address] PCP - General Nurse Practitioner 10/27/23 05/13/24 Akilah Mary MD [address] [address] PCP - General Family Medicine 05/14/24 12/01/24 Zeenat Santana MD [address] [place] [address] [email or web address] PCP - General Internal Medicine 12/02/24 documented as of this encounter Additional Source Comments The information contained in this document represents components of the legal health record. It is not the complete legal health record.[facility]
--- OUTSIDE RECORDS SUMMARY | 2025-01-31 12:12 | XMS_ITS | Encounter Summary ---
Author Organization [facility] Address [address] [facility] [address] [place] [address] Phone Care Team Providers Care Solar Sales Advisor Name Role Phone Eliza Tavera AUTO TRANSMISSION TECHNICIAN Primary Care Provider [phone] Akilah Mary MD Primary Care Provider [phone] Zeenat Santana MD Primary Care Provider [phone] Encounter Details Date Type Department Care Team (Late st Contact Info) Description 02/05/2024 Procedure Pass [address] [place] [address] Social History Tobacco Use Types Packs/Day Years [...] Description 03/09/2025 1:00 PM EST Office Visit [facility] Assessment Center [address] [place], [place] [id number] Audra Blair, PhD [address] [place] [address] [email or web address] [email or web address] 03/22/2025 1:00 PM EST Telemedicine [facility] Sleep Disorders Unit [address] [facility], 8th Floor, [address] [place] [address] Gianni Forbes FNP [address] [facility] 8[address] [place] [address] [email or web address] 04/05/2025 1:00 PM EST Office Visit [facility] [address] [place] [address] [place] [address] Zeenat Santana MD [address] [place] [address] [email or web address] documented as of this encounter Visit Diagnoses Not on filedocumented in this encounter Care Teams Solar Sales Advisor Relationship Specialty Start Date End Date Eliza Tavera FNP [address] [address] [email or web address] PCP - General Nurse Practitioner 10/27/23 05/13/24 Akilah Mary MD 15 [facility] [address] [place] [address] PCP - General Family Medicine 05/14/24 12/01/24 Zeenat Santana MD [address] [place] [address] [email or web address] PCP - General Internal Medicine 12/02/24 documented as of this encounter Additional Source Comments The information contained in this document represents components of the legal health record. It is not the complete legal health record.[facility]
--- OUTSIDE RECORDS SUMMARY | 2025-01-31 12:12 | XMS_ITS | Encounter Summary ---
Author Organization [facility] Address [address] [place] [address] Phone Care Team Providers Care Turn Laster Name Role Phone Akilah Mary MD Primary Care Provider [phone] Zeenat Santana MD Primary Care Provider [phone] Encounter Details Date Type Department Care Team (Late st Contact Info) Description 07/26/2024 Procedure Pass MRI, [facility] - [address] [place] [address] Social History Tobacco Use Types Packs/Day Years [...] Description 03/09/2025 1:00 PM EST Office Visit [facility] [address] [place] [address] Audra Blair, PhD [address] [place] [address] MARIA [email or web address] 03/22/2025 1:00 PM EST Telemedicine [facility] [address] [facility], 8th Floor, [address] [place] [address] Gianni Forbes FNP 55 [facility] 835 [place] [address] [email or web address] 04/05/2025 1:00 PM EST Office Visit [facility] [address] [place] [address] [place] [address] Zeenat Santana MD [address] [place] [address], 2nd [place] [address] [email or web address] documented as of this encounter Visit Diagnoses Not on filedocumented in this encounter Care Teams Turn Laster Relationship Specialty Start Date End Date Akilah Mary MD [address] [facility] [address] [place] [address] [email or web address] PCP - General Family Medicine 05/14/24 12/01/24 Zeenat Santana MD [address] [place] [address], 2nd [place] [address] PCP - General Internal Medicine 12/02/24 documented as of this encounter Additional Source Comments The information contained in this document represents components of the legal health record. It is not the complete legal health record.[facility]
--- OUTSIDE RECORDS SUMMARY | 2025-01-31 12:12 | XMS_ITS | Encounter Summary ---
Author Organization [facility] Address [address] [place] [address] Phone Care Team Providers Care Top Frame Maker Name Role Phone Akilah Mary MD Primary Care Provider [phone] Zeenat Santana MD Primary Care Provider [phone] Encounter Details Date Type Department Care Team (Late st Contact Info) Description 07/26/2024 Procedure Pass MRI, [facility] Imaging - [address] [place] [address] Social History Tobacco Use Types Packs/Day Years [...] Description 03/09/2025 1:00 PM EST Office Visit [facility] Psychology Assessment Center [address] [place] [address] Audra Blair, PhD [address] [place] [address] MARIA [email or web address] 03/22/2025 1:00 PM EST Telemedicine [facility] Sleep Disorders Unit 55 [facility], 8th Floor, [address] [place] [address] Gianni Forbes FNP 55 [facility] Department [facility] 8[address] [place] [address] [email or web address] 04/05/2025 1:00 PM EST Office Visit [facility] [address] [place] [address] [place] [address] Zeenat Santana MD [address] [place] [address], 2nd [place] [address] [email or web address] documented as of this encounter Visit Diagnoses Not on filedocumented in this encounter Care Teams Top Frame Maker Relationship Specialty Start Date End Date Akilah Mary MD [address] [facility] [address] [place] [address] [email or web address] PCP - General Family Medicine 05/14/24 12/01/24 Zeenat Santana MD [address] [place] [address], 2[address] [place] [address] PCP - General Internal Medicine 12/02/24 documented as of this encounter Additional Source Comments The information contained in this document represents components of the legal health record. It is not the complete legal health record.[facility]
--- OUTSIDE RECORDS SUMMARY | 2025-01-31 12:12 | XMS_ITS | Clinical Summary ---
Author Organization [address] Address [address] [place] [phone] Phone Care Team Providers Care Escrow Processor Name Role Phone Unavailable Primary Care Provider [...] 9:00 AM EST Evaluation [facility] at [address] [place] [address] Morris Sanchez MD [address] [place] [phone] Trinidad Carrizales PsyD [address] [place] [phone] Health Maintenance Due Date Last Done Comments HIV screening 1966 Hepatitis C screening 1971 Tetanus adult (Td q 10,TDAP once) 1973 Breast cancer screening 1993 Lipid disorder screening 1993 Colon cancer screening, Colonoscopy 1998 Diabetes screening 1998 Osteoporosis screening (bone density) 2018 Influenza vaccine 10/22/2024 01/11/2022, , 12/24/2019, Additional history exists Covid-19 vaccine series ( - 2024- season) 2024 RSV Immunization (1 - 1-dose 75+ series) 2028 Pneumococcal Vaccine (50+ years) Completed 03/06/2020, 06/15/2018 Shingles vaccine (Shingrix) Completed 06/05/2021, 1 05/01/2020 Cervical cancer screening Discontinued Meningococcal B Vaccine Aged Out No l onger eligible based on patient's age to complete this topic Meningococcal Vaccine Aged Out No dawson [place] eligible based on patient's age to complete this topic Insurance [facility]
--- OUTSIDE RECORDS SUMMARY | 2025-01-31 12:12 | XMS_ITS | Clinical Summary ---
Author Organization [facility] Address [address] [facility] [address] [place] [address] Phone Care Team Providers Care [employer] Flatbed Driver Name Role Phone Max Zeenat Hernandez MD Primary Care Provider [phone] Allergies Active Allergy Reactions Criticality Noted Date Comments Penicillins Rash Low 07/14/2023 Medications atenolol (TENORMIN) 50 mg tablet Take 50 mg by mouth daily. Active buPROPion (WELLBUTRIN) 100 MG immediate release tablet Take 100 mg by mouth 2 (two) times a day. Active hydroCHLOROthiazi de 25 MG tablet Take 25 mg by mouth daily. 08/28/2023 Active losartan (COZAAR) 100 MG tablet Take 100 mg by mouth daily. Active PARoxetine (PAXIL) 40 MG tablet Take 40 mg by mouth every morning. Active rosuvastatin (CRESTOR) 20 MG tablet Take 20 mg by mouth daily. Active calcium-vitamin D3-vitamin K (VIACTIV) 1,250 mg (500 mg elemental)-500 unit-40 mcg Chew Take 1 tablet by mouth daily. Active betamethasone dipropionate 0.05 % cream 12/25/2023 Active minoxidiL (LONITEN) 2.5 MG tablet 01/01/2024 Active BABY ASPIRIN ORAL Take 81 mg by mouth daily. Active Active Problems Problem Noted Date Diagnosed Date [...] Encounters Date Type Department Care Team Description 01/07/2025 Orders Only [facility] [address] [place] [address] Unknown, Roshni, 12/02/2024 10:43 AM EDT - 12/02/2024 11:59 PM EDT Hospital Encounter [facility] [address] [place] [address] Morris Sanchez MD Discharge Disposition: Home or Self Care 12/02/2024 10:00 AM EDT Office Visit [facility] [address] [place] [address] Zeenat Santana MD Essential hypertension (Primary Dx); Cardiomyopathy, unspecified type; Memory loss; Involuntary movements; Depression with anxiety from Last 3 Months Immunizations Immunization Administration [...] Description 03/09/2025 1:00 PM EST Office Visit [facility] [address] [facility] 7th [place] [address] Audra Blair, PhD [address] [facility] [address] [place] [address] MARIA [email or web address] 03/22/2025 1:00 PM EST Telemedicine [facility] [place] 55 [facility], 8th Floor, [address] [place] [address] Gianni Forbes FNP 55 [facility] [address] [place] [address] [email or web address] 04/05/2025 1:00 PM EST Office Visit [facility] [address] [place] [address] [place] [address] Zeenat Santana MD [address] [place] [address], 2nd [place] [address] [email or web address] Health Maintenance Due Date Last Done Comments Adult Td,Tdap Booster 1953 LIPID PANEL 1953 HEPATITIS C SCREENING 1971 COLOGUARD 1998 COLONOSCOPY 1998 COLORECTAL CANCER SCREENING 1998 FIT TEST 1998 FOBT 1998 SIGMOIDOSCOPY 1998 VIRTUAL COLONOSCOPY 1998 LUNG CANCER SCREENING (LDCT Only) 2003 PNEUMOCOCCAL VACCINES (50+ years) (1 of 1 - PCV) 2003 ZOSTER VACCINES (1 of 2) 2003 COVID-19 VACCINE (1 - 2024- season) 2024 10/23/2023, 02/27/2023, 03/14/2022, Additional history [...] on patient's age to complete this topic IPV VACCINES Aged Out No longer eligi ble based on patient's age to complete this topic MENINGOCOCCAL VACCINES (ACWY) Aged Out No longer eligible based on patient's age to complete this topic MENINGOCOCCAL VACCINES (B) Aged Out N o longer eligible based on patient's age to complete this topic Medical Devices Not on file Procedures Procedure Name Priority Date/Time Associated Diagnosis Comments OUTSIDE LAB Routine 12/23/2024 11:46 AM EDT LYME WESTERN BLOT ONLY Routine 10:44 AM EDT CBC AND DIFFERENTIAL Routine 12/02/2024 10:44 AM EDT Memory loss Unsteady gait COMPREHENSIVE METABOLIC PANEL (CMP) Routine 12/02/2024 10:44 AM EDT Memory loss [...] Routine 10/18/2024 2:48 PM EDT Menopausal state BI MAMMOGRAM SCREENING WITH TOMOSYNTHESIS WITH CAD (BILATERAL) Routine 04/26/2024 11:39 AM EST Encounter for screening mammogram for malignant neoplasm of breast from Last 3 Months or Most Recently Relevant to Health Maintenance Results * Outside Lab (12/23/2024 11:46 AM EDT) us Unknown Unknown MD LAB BLOOD BKR ORDERABLES Edit ed Result - Final * Lyme Western blot only (12/02/2024 10:44 AM EDT) IGG Immunoblot Negative Negative [facility] LAB MED/PATH [address] DR IGG BANDS (KDA) p23 kDa [facility] LAB MED/PATH [address] DR IGM Immunoblot Negative Negative [facility] MED/PATH [address] DR IGM BANDS (KDA) p41 kDa [facility] LAB MED/PATH [address] DR Interpretation - Lyme SEE NOTE JO DEPT LAB MED/PATH SUPERIOR Comment: (NOTE) Specific serologic [...] AM EDT Morris Sanchez MD LAB BLOOD BKR ORDERABLES Final Result [facility] MED/PATH [address] [place] [address] * (ABNORMAL) Lyme Screen with Reflex to Immunoblot, Blood (12/02/2024 10:44 AM EDT) Lyme AB IgG Negative Negative [facility] Lyme AB IgM Equivocal(A) Negative [facility] Comment:The Lyme Disease Ant ibody, Confirmation, Serum (Western Blot) has been reflexed. The results will follow. Blood 12/02/2024 10:4 4 AM EDT 12/02/2024 10:50 AM EDT Morris Sanchez MD LAB BLOOD BKR ORDERABLES Final Result [address] [address] * (ABNORMAL) Comprehensive metabolic panel (12/02/2024 10:44 AM EDT) SODIUM 144 133 - 146 mmol/L [facility] POTASSIUM 4.6 3.3 - 5.1 mmol/L [facility] CHLORIDE 105 96 - 108 mmol/L [facility] CO2 28 21 - 35 mmol/L [facility] BUN 15 6 - 19 mg/dL [facility] CREATININE 1.00 0.5 - 1.5 mg/dL [facility] GLUCOSE 110(H) 70 - 99 mg/dL [facility] ALBUMIN 4.1 3.9 - 4.8 g/dL [facility] TOTAL PROTEIN 7.1 6.5 - 8.0 g/dL [facility] CALCIUM 10.4(H) 8.4 - 10.3 mg/dL [facility] ALKALINE PHOSPHATASE 111 39 - 117 U/L [facility] TOTAL BILIRUBIN 0.3 0.0 - 1.2 mg/dL [facility] AST 33 0 - 37 U/L [facility] ALT 22 0 - 40 U/L [facility] GLOBULIN 3.0 1 - 4.8 g/dL [facility] EGFR 60 >59 mL/min/1.7 3m2 [facility] Comment:Estimated glomerular filtration rate calculated using the CKD-EPI refit equation. ANION GAP 16 10 - 20 mmol/L [facility] Blood 12/02/2024 10:4 4 AM EDT 12/02/2024 10:50 AM EDT us Morris Sanchez MD LAB BLOOD BKR ORDERABLES Final Result [address] [address] * TSH with reflex (12/02/2024 10:44 AM EDT) TSH 2.65 0.27 - 4.20 uIU/mL [facility] Blood 12/02/2024 10:4 4 AM EDT 12/02/2024 10:50 AM EDT us Morris Sanchez MD LAB BLOOD BKR ORDERABLES Final Result Performing Organization Address [facility]/ZIP Co de Phone Number [address] [address] * Syphilis antibody screen (12/02/2024 10:44 AM EDT) RPR NON-REACTIV E NON-REACTI VE [facility] Blood 12/02/2024 10:4 4 AM EDT 12/02/2024 10:50 AM EDT us Morris Sanchez MD LAB BLOOD BKR ORDERABLES Final Result Performing Organization Address [facility] Co de Phone Number [address] [address] * 25-OH vitamin D (12/02/2024 10:44 AM EDT) 25 OH VIT D (TOTAL) 48 30 - 60 ng/mL [facility] Blood 12/02/2024 10:4 4 AM EDT 12/02/2024 10:50 AM EDT us Morris Sanchez MD LAB BLOOD BKR ORDERABLES Final Result Performing Organization Address [facility]/ZIP Co de Phone Number [address] [address] * Sedimentation rate (ESR) (12/02/2024 10:44 AM EDT) ESR 29 0 - 30 mm/h [facility] Blood 12/02/2024 10:4 4 AM EDT 12/02/2024 10:50 AM EDT us Morris Sanchez MD LAB BLOOD BKR ORDERABLES Final Result [facility] [address] [place] [address] * CBC and differential (12/02/2024 10:44 AM EDT) WBC 6.47 4.00 - 11.00 K/uL [facility] RBC 4.67 4.00 - 5.20 M/uL [facility] HGB 13.1 12.0 - 16.0 g/dL [facility] HCT 40.7 36.0 - 46.0 % [facility] PLT 222 150 - 450 K/uL [facility] MCV 87.2 80.0 - 100.0 fL [facility] MCH 28.1 27.0 - 31.0 pg [facility] MCHC 32.2 32.0 - 36.0 g/dL [facility] RDW 13.2 11.5 - 14.5 % [facility] MPV 11.7 8.4 - 12.0 fL [facility] NRBC 0.00 0.00 /100 WBCs [facility] ABSOLUTE NRBC 0.00 0.00 K/uL [facility] DIFF METHOD Auto [facility] NEUTS 54.1 48.0 - 76.0 % [facility] LYMPHS 33.1 18.0 - 41.0 % [facility] MONOS 8.0 4.0 - 11.0 % [facility] EOS 3.2 0.0 - 5.0 % [facility] BASOS 1.4 0.0 - 1.5 % [facility] Granulocytes, immature (%) 0.2 0.0 - 0.9 % [facility] ABSOLUTE NEUTS 3.50 1.92 - 7.60 K/uL [facility] ABSOLUTE LYMPHS 2.14 0.72 - 4.10 K/uL [facility] ABSOLUTE MONOS 0.52 0.16 - 1.10 K/uL [facility] ABSOLUTE EOS 0.21 0.00 - 0.50 K/uL [facility] ABSOLUTE BASOS 0.09 0.00 - 0.15 K/uL [facility] Granulocytes, immature 0.01 0.00 - 0.09 K/uL [facility] Blood 12/02/2024 10:4 4 AM EDT 12/02/2024 10:50 AM EDT us Morris Sanchez MD LAB BLOOD BKR ORDERABLES Final Result Performing Organization Address City/[facility]/ZIP Co de Phone Number [address] [address] * Folate (12/02/2024 10:44 AM EDT) FOLIC ACID 11.0 4.2 - 19.9 ng/mL [facility] Blood 12/02/2024 10:4 4 AM EDT 12/02/2024 10:50 AM EDT us Morris Sanchez MD LAB BLOOD BKR ORDERABLES Final Result Performing Organization Address [facility]/ZIP Co de Phone Number [address] [address] * Vitamin B12 (12/02/2024 10:44 AM EDT) VITAMIN B12 281 232 - 1,245 pg/mL [facility] Blood 12/02/2024 10:4 4 AM EDT 12/02/2024 10:50 AM EDT Morris Sanchez MD LAB BLOOD BKR ORDERABLES Final Result Performing Organization Address [facility]/ZIP Co de Phone Number [address] [address] * BD DXA AXIAL (SPINE) WITH HIP (10/18/2024 2:48 PM EDT) Anatomical Region Laterality Modality Bone Density Bone Density 10/18/2024 2:47 PM EDT Impressions 10/19/2024 12:17 PM EDT Interpretation: Osteopenia. Narrative 10/19/2024 12:17 PM EDT Referred By: DAMION OLMOS Indications: Postmenopausal Scanner: ActiveTrak A with serial# of [id number] located at [facility] Bone Density Scan (DXA) 10/18/24 Details [...] -2.5), or Osteoporosis (T-score <= -2.5). At [facility], T-scores are compared to peak bone density [...] Referred By: DAMION OLMOS Indications: Postmenopausal Scanner: ActiveTrak A with serial# of [id number] located at [facility] Bone Density Scan (DXA) 10/18/24 Details [...] -2.5), or Osteoporosis (T-score <= -2.5). At [facility], T-scores are compared to peak bone density [...] density results. IMPRESSION: Interpretation: Osteopenia. us Damion Olmos SALES MARKET LEADER IMG BD BONE DENSITY DEXA Fi nal Result * BI MAMMOGRAM SCREENING WITH TOMOSYNTHESIS [...] be notified of the results and recommendations. us Damion Olmos SALES MARKET LEADER IMG MG EXAMS Final Resul t from Last 3 Months or Most Recently Relevant to Health Maintenance Insurance [facility] MEDICARE [facility]PLACEMENT [address] [facility]PLAC[facility] MEDICARE REPLACEMENT [place] [id number] [facility] MEDIC[facility] REPLACEMENT [place] [id number] [facility] MEDIC[facility] REPLACEMENT [place] [id number] [facility] MEDIC[facility] REPLACEMENT [place] [id number] Care Teams [employer] Flatbed Driver Relationship Specialty Start Date End Date Zeenat Santana MD [address] [place] [address], 2nd [place] [address] [email or web address] PCP - General Internal Medicine 12/02/24 Additional Source Comments The information contained in this document represents components of the legal health record. It is not the complete legal health record.[facility]
--- OUTSIDE RECORDS SUMMARY | 2025-01-31 12:12 | XMS_ITS | Encounter Summary ---
Author Organization [facility] Address [address] [employer] [facility] [address] [place] [address] Phone Care Team Providers Care Snout Puller Name Role Phone Max Zeenat Hernandez MD Primary Care Provider [phone] Encounter Details Date Type Department Care Team (Late st Contact Info) Description 01/07/2025 Orders Only [facility] Medicine [address] [place] [address] Unknown, Unknown, Social History Tobacco Use Types Packs/Day Years [...] EST Office Visit [facility] Psychology Assessment Center [address] [place] [address] Audra Blair, PhD [address] [place] [address] MARIA [email or web address] 03/22/2025 1:00 PM EST Telemedicine [facility] Sleep Disorders Unit [address] [facility], 8th Floor, [address] [place] [address] Gianni Forbes FNP 55 [facility] [address] [place] [address] [email or web address] 04/05/2025 1:00 PM EST Office Visit [facility] [address] [place] [address] [place] [address] Zeenat Santana MD [address] [place] [address] [email or web address] documented as of this encounter Procedures Procedure Name Priority Date/Time Associated Diagnosis Comments OUTSIDE LAB Routine 12/23/2024 11:46 AM EDT documented in this encounter Results * Outside Lab (12/23/2024 11:46 AM EDT) us Unknown Unknown LAB BLOOD BKR ORDERABLES Edit ed Result - Final documented in this encounter Visit Diagnoses Not on filedocumented in this encounter Additional Health Concerns Assessment Noted Time PHQ-9 Depression Total Score: 11 025 10:25 AM EDT PHQ-2 Depression Total Score: 3 11/27/19 25 10:25 AM EDT documented as of this encounter Care Teams Snout Puller Relationship Specialty Start Date End Date Zeenat Santana MD [address] [place] [address], [address] [place] [address] [email or web address] PCP - General Internal Medicine 12/02/24 documented as of this encounter Additional Source Comments The information contained in this document represents components of the legal health record. It is not the complete legal health record.[facility]
--- OUTSIDE RECORDS SUMMARY | 2025-01-31 12:12 | XMS_ITS | Encounter Summary ---
Author Organization [facility] Address [address] [facility] [address] [place] [address] Phone Care Team Providers Care Long Wall Mining Machine Helper Name Role Phone Eliza Tavera CANAL BOAT OPERATOR Primary Care Provider [phone] Akilah Mary MD Primary Care Provider [phone] Zeenat Santana MD Primary Care Provider [phone] Encounter Details Date Type Department Care Team (Late st Contact Info) Description 11/11/2023 Procedure Pass [facility] - [address] [place] [address] Social History Tobacco Use Types Packs/Day Years [...] Description 03/09/2025 1:00 PM EST Office [place] [facility] [address] [place] [address] Audra Blair, PhD [address] [facility] [address] [place] [address] MARIA [email or web address] 03/22/2025 1:00 PM EST Telemedicine [facility] [place] 55 [facility], 8th Floor, [address] [place] [address] Gianni Forbes FNP 55 [facility] 8[address] [place] [address] [email or web address] 04/05/2025 1:00 PM EST Office Visit [facility] [address] [place] [address] [place] [address] Zeenat Santana MD [address] [place] [address] [email or web address] documented as of this encounter Visit Diagnoses Not on filedocumented in this encounter Care Teams [employer] Mining Machine Helper Relationship Specialty Start Date End Date Eliza Tavera FNP [address] [place] [address] [email or web address] PCP - General Nurse Practitioner 10/27/23 05/13/24 Akilah Mary MD [address] [place] [address] PCP - General Family Medicine 05/14/24 12/01/24 Zeenat Santana MD [address] [place] [address] [email or web address] PCP - General Internal Medicine 12/02/24 documented as of this encounter Additional Source Comments The information contained in this document represents components of the legal health record. It is not the complete legal health record.[facility]
--- OUTSIDE RECORDS SUMMARY | 2025-01-31 12:12 | XMS_ITS | Encounter Summary ---
Author Organization [facility] Address [address] [employer] [facility] [address] [place] [address] Phone Care Team Providers Care Mental Health Associate Name Role Phone Pcp, Unknown Primary Care Provider Eliza Hyde Primary Care Provider [phone] Akilah Mary MD Primary Care Provider [phone] Zeenat Santana MD Primary Care Provider [phone] Encounter Details Date Type Department Care Team (Late st Contact Info) Description 07/14/2023 Procedure Pass [facility], Ct Scan - [address] [address] Social History Tobacco Use Types Packs/Day Years [...] AM EDT Tasneem Pearce ma, RN * [place] Suicide Severity Rating Scale (Screener/Recent Self-Report) Question [...] [facility] 1 [facility] 7th [place] [address] Audra Blair, PhD [address] [place] [address] [address] [place] [address] MARIA [email or web address] 03/22/2025 1:00 PM EST Telemedicine [facility] Sleep Disorders Unit [address] [place] [address], 8th Floor, [address] [place] [address] Gianni Forbes FNP [address] [place] [address] [address] [email or web address] 04/05/2025 1:00 PM EST Office Visit [facility] [address] [place] [address] [place] [address] Zeenat Santana MD [address] [place] [address], 2nd [place] [address] documented as of this encounter Visit Diagnoses Not on filedocumented in this encounter Care Teams Mental Health Associate Relationship Specialty Start Date End Date Pcp, Unknown PCP - General 07/14/23 10/26/23 Eliza Tavera FNP [address] [address] [email or web address] PCP - General Nurse Practitioner 10/27/23 05/13/24 Akilah Mary MD [address] [address] PCP - General Family Medicine 05/14/24 12/01/24 Zeenat Santana MD [address] [place] [address], 2nd [place] [address] PCP - General Internal Medicine 12/02/24 documented as of this encounter Additional Source Comments The information contained in this document represents components of the legal health record. It is not the complete legal health record.[facility]
--- OUTSIDE RECORDS SUMMARY | 2025-01-31 12:12 | XMS_ITS | Encounter Summary ---
Author Organization [facility] Address [address] [employer] [facility] [address] [place] [address] Phone Care Team Providers Care Generation Mechanic Helper Name Role Phone Pcp, Unknown Primary Care Provider Eliza Hyde Primary Care Provider [phone] Akilah Mary MD Primary Care Provider [phone] Zeenat Santana MD Primary Care Provider [phone] Encounter Details Date Type Department Care Team (Late st Contact Info) Description 07/14/2023 Procedure Pass [facility], Ct Scan - [address] [address] Social History Tobacco Use Types Packs/Day Years [...] Risk Indicated 07/14/2023 9:30 AM EDT Tasneem eParce ma, RN * [place] Suicide Severity Rating Scale (Screener/Recent Self-Report) Question [...] [facility] 1 [facility] 7th [place] [address] Audra Blair, PhD [address] [place] [address] [address] [place] [address] MARIA [email or web address] 03/22/2025 1:00 PM EST Telemedicine [facility] Sleep Disorders Unit [address] [place] [address], 8th Floor, [address] [place] [address] Gianni Forbes FNP [address] [place] [address] [address] [address] [email or web address] 04/05/2025 1:00 PM EST Office Visit [facility] [address] [place] [address] [place] [address] Zeenat Santana MD [address] [place] [address], 2nd [place] [address] documented as of this encounter Visit Diagnoses Not on filedocumented in this encounter Care Teams Generation Mechanic Helper Relationship Specialty Start Date End Date Pcp, Unknown PCP - General 07/14/23 10/26/23 Eliza Tavera FNP [address] [address] [email or web address] PCP - General Nurse Practitioner 10/27/23 05/13/24 Akilah Mary MD [address] [address] PCP - General Family Medicine 05/14/24 12/01/24 Zeenat Santana MD [address] [place] [address], 2nd [place] [address] PCP - General Internal Medicine 12/02/24 documented as of this encounter Additional Source Comments The information contained in this document represents components of the legal health record. It is not the complete legal health record.[facility]
== END 2025-01-31 10:51 | disposition home or self-care (01) ==
LOC: HO.HSMS 10:25
PROVIDERS: PCP Internal Medicine; Visit Provider Psychiatry & Neurology Neurology
DX: G25.5 Other chorea (principal); R06.83 Snoring
CPT/HCPCS: 99214

== ENCOUNTER 2025-02-09 13:29 | Outpatient (AMB) | payer OTHER, SELFPAY ==
--- OUTSIDE RECORDS SUMMARY | 2025-02-07 09:17 | XMS_ITS | Encounter Summary ---
Author Organization [facility] Address [address] [facility] [address] [place] [address] Phone Care Team Providers Care Chemical Test Engineer Name Role Phone Zeenat Santana MD Primary Care Provider [phone] Encounter Details Date Type Department Care Team (Late st Contact Info) Description 02/07/2025 9:17 AM EST - 02/07/2025 11:59 PM [facility] Hospital Encounter [facility], X-Ray - [address] [place] [address] Zeenat Santana MD [address] [place] [address], 2nd [place] [address] [email or web address] Arrived Discharge Disposition: Home or Self Care Social History Tobacco Use Types Packs/Day Years [...] AM EDT documented as of this encounter Medications at Time of Discharge amantadine HCl (SYMMETREL) 100 mg tablet Take 50 mg by mouth 2 (two) times a day. atenolol (TENORMIN) 50 mg tablet Take 50 mg by mouth daily. BABY ASPIRIN ORAL Take 81 mg by mouth daily. betamethasone dipropionate 0.05 % cream 12/25/2023 buPROPion (WELLBUTRIN) 100 MG immediate release tablet Take 100 mg by mouth 2 (two) times a day. calcium-vitamin D3-vitamin K (VIACTIV) 1,250 mg (500 mg elemental)-500 unit-40 mcg Chew Take 1 tablet by mouth daily. hydroCHLOROthiazide 25 MG tablet Take 25 mg by mouth daily. 08/28/2023 losartan (COZAAR) 100 MG tablet Take 100 mg by mouth daily. minoxidiL (LONITEN) 2.5 MG tablet 01/01/2024 PARoxetine (PAXIL) 40 MG tablet Take 40 mg by mouth every morning. rosuvastatin (CRESTOR) 20 MG tablet Take 20 mg by mouth daily. documented as of this encounter Plan of Treatment Upcoming Encounters Date Type Department Care Team (Late st Contact Info) Description 02/04/2025 Procedure Pass [address] [address] 02/14/2025 4:30 PM EST Appointment [address] [address] Zeenat Santana MD [address] [place] [address], 2nd [place] [address] [email or web address] 03/09/2025 1:00 PM EST Office Visit [facility] Psychology Assessment Center 1 [facility] 7th [place] [address] Audra Blair, PhD [address] [place] [address] [address] [place] [address] MARIA [email or web address] 03/22/2025 1:[address] [facility] Sleep Disorders Unit [address] [place] [address], 8th Floor, [address] [place] [address] Gianni Forbes FNP 55 [facility] [place] [address] [email or web address] 04/05/2025 1:00 PM EST Office Visit [facility] [place] [facility] [address] [place] [address] [place] [address] Zeenat Santana MD [address] [place] [address], 2nd [place] [address] [email or web address] documented as of this encounter Procedures Procedure Name Priority Date/Time Associated Diagnosis Comments XR HIP 2 VW RIGHT PLUS PELVIS Routine 02/07/2025 9:36 AM EST Acute pain of right hip documented in this encounter Results * XR HIP 2 VW RIGHT PLUS PELVIS (02/07/2025 9:36 AM EST) Anatomical Region Laterality Modality Hip Right Computed Radiogr aphy 02/07/2025 11:0 2 AM EST Impressions 02/07/2025 11:03 AM EST Moderate right and mild to moderate left hip degenerative changes. Narrative 02/07/2025 11:03 AM EST XR HIP 2 VW RIGHT PLUS PELVIS Referring clinician's provided indication for this examination in Epic: Pain COMPARISON: None FINDINGS: Pelvis: Partially imaged advanced lower lumbar spine degenerative changes. Sacroiliac joints and pubic symphysis are intact. Frontal evaluation of the left hip shows divl-[id number] degenerative changes. Right hip: No displaced fracture. Moderate degenerative changes. Procedure Note Lazaro Lockhart MD - 02/07/2025 XR HIP 2 VW RIGHT PLUS PELVIS Referring clinician's provided indication for this examination in Epic:Pain COMPARISON: None FINDINGS: Pelvis: Partially imaged advanced lower lumbar spine degenerative changes.Sacroiliac joints and pubic symphysis are intact. Frontal evaluation ofthe left hip shows zvvd-ui-[id number] degenerative changes. Right hip: No displaced fracture. Moderate degenerative changes. IMPRESSION: Moderate right and mild to moderate left hip degenerative changes. us Zeenat Santana MD IMG XR PELVIS Final Result documented in this encounter Visit Diagnoses Diagnosis Acute pain of right hip documented in this encounter Additional Health Concerns Assessment Noted Time PHQ-9 Depression Total Score: 11 025 10:25 AM EDT PHQ-2 Depression Total Score: 3 11/27/19 25 10:25 AM EDT documented as of this encounter Care Teams Chemical Test Engineer Relationship Specialty Start Date End Date Zeenat Santana MD [address] [place] [address], 2nd Floor [place] [phone] [email or web address] PCP - General Internal Medicine 12/02/24 documented as of this encounter Additional Source Comments The information contained in this document represents components of the legal health record. It is not the complete legal health record.[facility]
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
--- OUTSIDE RECORDS SUMMARY | 2025-02-10 01:28 | XMS_ITS | Clinical Summary ---
Author Organization [facility] Address [address] [place] [phone] Phone Care Team Providers Care Operations Research Director Name Role Phone Unavailable Primary Care Provider Unavailabl e Social History Tobacco Use Types Packs/Day Years Used Date Smoking Tobacco: Never Assessed Comments Unknown Sex and Gender Information Value Date Recorded Sex Assigned at Not on file Legal Sex Female 9:49 AM EDT Gender Identity Not on file Sexual Orientation Not on file Plan of Treatment Upcoming Encounters Date Type Department Care Team ([facility] st Contact Info) Description 04/26/2025 9:00 AM EST Evaluation [facility] [address] [place] [address] Morris Sanchez MD [address] [place] [phone] Trinidad Carrizales PsyD [address] [place] [phone] Health Maintenance Due Date Last Done Comments [...] patient's age to complete this topic Insurance [facility] MGD [facility] MGD [facility] MGD
--- OUTSIDE RECORDS SUMMARY | 2025-02-10 01:29 | XMS_ITS | Encounter Summary ---
Author Organization [facility] Address [address] [employer] [employer] [facility] [address] [place] [address] Phone Care Team Providers Care News Production Assistant Name Role Phone Max Zeenat Hernandez MD Primary Care Provider [phone] Encounter Details Date Type Department Care Team (Late st Contact Info) Description 01/07/2025 Orders Only [facility] Medicine [address] [place] [address] Unknown, Unknown, Social History Tobacco Use Types [...] st Contact Info) Description 02/04/2025 Procedure Pass [facility], [address] [address] 02/14/2025 4:30 PM EST Appointment [facility], [address] [address] Zeenat Santana MD [address] [place] [address], 2nd [place] [address] [email or web address] 03/09/2025 1:00 PM EST Office Visit [facility] Psychology Assessment Center [address] 7th [place] [address] Audra Blair, PhD [address] [facility] [address] [place] [address] MARIA [email or web address] 03/22/2025 1:00 PM EST Telemedicine [facility] Sleep Disorders Unit 55 [facility], 8th Floor, [address] [place] [address] Gianni Forbes FNP [address] [facility] 835 [place] [address] [email or web address] 04/05/2025 1:00 PM EST Office Visit [facility] [address] [place] [address] [place] [address] Zeenat Santana MD [address] [place] [address], 2nd [place] [address] [email or web address] documented as of this encounter Procedures Procedure [...] Noted Time PHQ-9 Depression Total Score: 11 11/26/ 025 10:25 AM EDT PHQ-2 Depression Total Score: 3 11/27/19 25 10:25 AM EDT documented as of this encounter Care Teams News Production Assistant Relationship Specialty Start Date End Date Zeenat Santana MD [address] [place] [address], 2nd [place] [address] [email or web address] PCP - General Internal Medicine 12/02/24 documented as of this encounter Additional Source Comments The information contained in this document represents components of the legal health record. It is not the complete legal health record.[facility]
--- OUTSIDE RECORDS SUMMARY | 2025-02-10 01:29 | XMS_ITS | Encounter Summary ---
Author Organization [facility] Address [address] [place] [address] Phone Care Team Providers Care Supervisor Area Name Role Phone Akilah Mary MD Primary Care Provider [phone] Zeenat Santana MD Primary Care Provider [phone] Encounter Details Date Type Department Care Team (Late st Contact Info) Description 07/26/2024 Procedure Pass MRI, [facility] Imaging - [address] [place] [address] Social History Tobacco Use Types Packs/Day Years [...] st Contact Info) Description 02/04/2025 Procedure Pass [facility], [address] [address] 02/14/2025 4:30 PM EST Appointment [facility], Ct [address] [place] [address] Zeenat Santana MD [address] [place] [address], [address] [place] [address] [email or web address] 03/09/2025 1:00 PM EST Office Visit [facility] Psychology Assessment Center [address] 7th [place] [address] Audra Blair, PhD 55 [facility] [address] [place] [address] MARIA [email or web address] 03/22/2025 1:00 PM EST Telemedicine [facility] Sleep Disorders Unit 55 [facility], 8th Floor, [address] [place] [address] Gianni Forbes FNP 55 [facility] 835 [place] [address] [email or web address] 04/05/2025 1:00 PM EST Office Visit [facility] [address] [place] [address] [place] [address] Zeenat Santana MD [address] [place] [address] [email or web address] documented as of this encounter Visit Diagnoses Not on filedocumented in this encounter Care Teams Supervisor Area Relationship Specialty Start Date End Date Akilah Mary MD 15 [facility] [address]. [address] [place] [address] [email or web address] PCP - General Family Medicine 05/14/24 12/01/24 Zeenat Santana MD [address] [place] [address] PCP - General Internal Medicine 12/02/24 documented as of this encounter Additional Source Comments The information contained in this document represents components of the legal health record. It is not the complete legal health record.[facility]
--- OUTSIDE RECORDS SUMMARY | 2025-02-10 01:29 | XMS_ITS | Encounter Summary ---
Author Organization [facility] Address [address] [place] [address] Phone Care Team Providers Care Dairy Store Manager Name Role Phone Akilah Mary MD Primary Care Provider [phone] Zeenat Santana MD Primary Care Provider [phone] Encounter Details Date Type Department Care Team (Late st Contact Info) Description 07/26/2024 Procedure Pass MRI, [facility] Imaging - [address] [place] [address] Social History Tobacco Use Types Packs/Day Years [...] st Contact Info) Description 02/04/2025 Procedure Pass [facility], [address] [address] 02/14/2025 4:30 PM EST Appointment [facility], Ct [address] [place] [address] Zeenat Santana MD [address] [place] [address], [address] [place] [address] [email or web address] 03/09/2025 1:00 PM EST Office Visit [facility] Psychology Assessment Center [address] 7th [place] [address] Audra Blair, PhD 55 [facility] [place] [address] [place] [address] MARIA [email or web address] 03/22/2025 1:00 PM EST Telemedicine [facility] Sleep Disorders Unit 55 [facility], 8th Floor, [address] [place] [address] Gianni Forbes FNP 55 [facility] [place] [facility] 835 [place] [address] [email or web address] 04/05/2025 1:00 PM EST Office Visit [facility] [address] [place] [address] [place] [address] Zeenat Santana MD [address] [place] [address] [email or web address] documented as of this encounter Visit Diagnoses Not on filedocumented in this encounter Care Teams Dairy Store Manager Relationship Specialty Start Date End Date Akilah Mary MD [address] [facility] [address] [place] [address] [email or web address] PCP - General Family Medicine 05/14/24 12/01/24 Zeenat Santana MD [address] [place] [address] PCP - General Internal Medicine 12/02/24 documented as of this encounter Additional Source Comments The information contained in this document represents components of the legal health record. It is not the complete legal health record.[facility]
--- OUTSIDE RECORDS SUMMARY | 2025-02-10 01:29 | XMS_ITS | Encounter Summary ---
Author Organization [facility] Address [address] [facility] [address] [place] [phone] Phone Care Team Providers Care Outpatient Facility Physical Therapist Name Role Phone Eliza Tavera TRAUMA DOCTOR Primary Care Provider [phone] Akilah Mary MD Primary Care Provider [phone] Zeenat Santana MD Primary Care Provider [phone] Encounter Details Date Type Department Care Team (Late st Contact Info) Description 02/05/2024 Procedure Pass [address] [place] [address] Social History Tobacco Use Types Packs/Day Years [...] st Contact Info) Description 02/04/2025 Procedure Pass [facility], [facility] [address] [place] [address] 02/14/2025 4:30 PM EST Appointment [facility], Ct Scan - [address] [address] Zeenat Santana MD [address] [place] [address], 2nd [place] [address] [email or web address] 03/09/2025 1:00 PM EST Office Visit [facility] Psychology Assessment Center [address] 7th [place] [address] Audra Blair, PhD [address] [place] [address] BS01-7 [place] [address] MARIA [email or web address] 03/22/2025 1:00 PM EST Telemedicine [facility] Sleep Disorders Unit [address] [facility], 8th Floor, [address] [place] [address] Gianni Forbes FNP [address] [place] [address] [facility] [address] [place] [address] [email or web address] 04/05/2025 1:00 PM EST Office Visit [facility] [address] [place] [address] [place] [address] Zeenat Santana MD [address] [place] [address], [address] [place] [address] [email or web address] documented as of this encounter Visit Diagnoses Not on filedocumented in this encounter Care Teams Outpatient Facility Physical Therapist Relationship Specialty Start Date End Date Eliza Tavera FNP [address] [address] [email or web address] PCP - General Nurse Practitioner 10/27/23 05/13/24 Akilah Mary MD [address] [facility] [address] [place] [address] [email or web address] PCP - General Family Medicine 05/14/24 12/01/24 Zeenat Santana MD [address] [place] [address], 2[address] [place] [address] [email or web address] PCP - General Internal Medicine 12/02/24 documented as of this encounter Additional Source Comments The information contained in this document represents components of the legal health record. It is not the complete legal health record.[facility]
--- OUTSIDE RECORDS SUMMARY | 2025-02-10 01:29 | XMS_ITS | Encounter Summary ---
Author Organization [facility] Address [address] [facility] [address] [place] [address] Phone Care Team Providers Care Crtt Name Role Phone Pcp, Unknown Primary Care Provider Eliza Hyde Primary Care Provider [phone] Akilah Mary MD Primary Care Provider [phone] Zeenat Santana MD Primary Care Provider [phone] Encounter Details Date Type Department Care Team (Late st Contact Info) Description 07/14/2023 Procedure Pass [facility], Ct Scan - [address] [address] Social History Tobacco Use Types Packs/Day Years [...] AM EDT Tasneem Pearce ma, RN * [place] Suicide Severity Rating Scale (Screener/Recent Self-Report) Question [...] st Contact Info) Description 02/04/2025 Procedure Pass [address] [address] 02/14/2025 4:30 PM EST Appointment [address] [address] Zeenat Santana MD [address] [place] [address], 2nd [place] [address] [email or web address] 03/09/2025 1:00 PM EST Office Visit [facility] Psychology Assessment Center 1 [facility] [place] 7th [place] [address] Audra Blair, PhD [address] [place] [address] BS01-[address] [place] [address] MARIA [email or web address] 03/22/2025 1:00 PM EST Telemedicine [facility] Sleep Disorders Unit [address] [place] [address], 8th Floor, [address] [place] [address] Gianni Forbes FNP [address] [place] [address] [address] [email or web address] 04/05/2025 1:00 PM EST Office Visit [facility] [address] [place] [address] [place] [address] Zeenat Santana MD [address] [place] [address], [address] [place] [address] documented as of this encounter Visit Diagnoses Not on filedocumented in this encounter Care Teams Crtt Relationship Specialty Start Date End Date Pcp, Unknown PCP - General 07/14/23 10/26/23 Eliza Tavera FNP [address] [address] PCP - General Nurse Practitioner 10/27/23 05/13/24 Akilah Mary MD [address] [address] PCP - General Family Medicine 05/14/24 12/01/24 Zeenat Santana MD [address] [place] [address], [address] [place] [address] PCP - General Internal Medicine 12/02/24 documented as of this encounter Additional Source Comments The information contained in this document represents components of the legal health record. It is not the complete legal health record.[facility]
--- OUTSIDE RECORDS SUMMARY | 2025-02-10 01:29 | XMS_ITS | Encounter Summary ---
Author Organization [facility] Address [address] [facility] [address] [place] [address] Phone Care Team Providers Care Leach Tank Tender Name Role Phone Eliza Tavera CHEMISTRY RESEARCH ASSISTANT Primary Care Provider [phone] Akilah Mary MD Primary Care Provider [phone] Zeenat Santana MD Primary Care Provider [phone] Encounter Details Date Type Department Care Team (Late st Contact Info) Description 11/11/2023 Procedure Pass [facility] - [address] [place] [address] Social History Tobacco Use Types Packs/Day Years [...] st Contact Info) Description 02/04/2025 Procedure Pass [facility], Ct Scan - [address] [address] 02/14/2025 4:30 PM EST Appointment [facility], Ct Scan - [facility] [address] [place] [address] Zeenat Santana MD [address] [place] [address], 2[address] [place] [address] [email or web address] 03/09/2025 1:00 PM EST Office Visit [facility] Psychology Assessment Center [address] 7th [place] [address] Audra Blair, PhD [address] [place] [address] BS01-7 [place] [address] MARIA [email or web address] 03/22/2025 1:00 PM EST Telemedicine [facility] Sleep Disorders Unit 55 [facility], 8th Floor, [address] [place] [address] Gianni Forbes FNP [address] [place] [address] [facility] [address] [place] [address] [email or web address] 04/05/2025 1:00 PM EST Office Visit [facility] [address] [place] [address] Zeenat Santana MD [address] [place] [address], [address] [place] [address] [email or web address] documented as of this encounter Visit Diagnoses Not on filedocumented in this encounter Care Teams Leach Tank Tender Relationship Specialty Start Date End Date Eliza Tavera FNP [address] [place] [address] [email or web address] PCP - General Nurse Practitioner 10/27/23 05/13/24 Akilah Mary MD [address] [place] [address] [email or web address] PCP - General Family Medicine 05/14/24 12/01/24 Zeenat Santana MD [address] [place] [address], 2nd [place] [address] [email or web address] PCP - General Internal Medicine 12/02/24 documented as of this encounter Additional Source Comments The information contained in this document represents components of the legal health record. It is not the complete legal health record.[facility]
--- OUTSIDE RECORDS SUMMARY | 2025-02-10 01:29 | XMS_ITS | Encounter Summary ---
Author Organization [facility] Address [address] [facility] [address] [place] [address] Phone Care Team Providers Care Independent Trader Name Role Phone Pcp, Unknown Primary Care Provider Eliza Hyde Primary Care Provider [phone] Akilah Mary MD Primary Care Provider [phone] Zeenat Santana MD Primary Care Provider [phone] Encounter Details Date Type Department Care Team (Late st Contact Info) Description 07/14/2023 Procedure Pass [facility], Ct Scan - [address] [address] Social History Tobacco Use Types Packs/Day Years [...] AM EDT Tasneem Pearce ma, RN * [place] Suicide Severity Rating Scale (Screener/Recent Self-Report) Question [...] st Contact Info) Description 02/04/2025 Procedure Pass [address] [address] 02/14/2025 4:30 PM EST Appointment [address] [address] Zeenat Santana MD [address] [place] [address], 2nd [place] [address] [email or web address] 03/09/2025 1:00 PM EST Office Visit [facility] Psychology Assessment Center 1 [facility] 7th [place] [address] Audra Blair, PhD [address] [place] [address] BS01[address] [place] [address] MARIA [email or web address] 03/22/2025 1:00 PM EST Telemedicine [facility] Sleep Disorders Unit [address] [place] [address], 8th Floor, [address] [place] [address] Gianni oFrbes FNP [address] [place] [address] [address] [email or web address] 04/05/2025 1:00 PM EST Office Visit [facility] [address] [place] [address] [place] [address] Zeenat Santana MD [address] [place] [address], [address] [place] [phone] documented as of this encounter Visit Diagnoses Not on filedocumented in this encounter Care Teams Independent Trader Relationship Specialty Start Date End Date Pcp, Unknown PCP - General 07/14/23 10/26/23 Eliza Tavera FNP [address] [address] PCP - General Nurse Practitioner 10/27/23 05/13/24 Akilah Mary MD [address] [address] PCP - General Family Medicine 05/14/24 12/01/24 Zeenat Santana MD [address] [place] [address], [address] [place] [address] PCP - General Internal Medicine 12/02/24 documented as of this encounter Additional Source Comments The information contained in this document represents components of the legal health record. It is not the complete legal health record.[facility]
--- OUTSIDE RECORDS SUMMARY | 2025-02-10 01:29 | XMS_ITS | Clinical Summary ---
Author Organization [facility] Address [address] [facility] [address] [place] [address] Phone Care Team Providers Care C.O.D. Audit Clerk Name Role Phone Max Zeenat Mary CAMPOS Primary Care Provider [phone] Allergies Active Allergy Reactions Criticality Noted Date [...] Take 81 mg by mouth daily. Active amantadine HCl (SYMMETREL) 100 mg tablet Take 50 mg by mouth 2 (two) times a day. Active Active Problems Problem Noted Date Diagnosed [...] Encounters Date Type Department Care Team Description 02/07/2025 9:17 AM EST - 02/07/2025 11:59 PM EST Hospital Encounter [facility], X-Ray - [address] [place] [address] Zeenat Santana MD Arrived Discharge Disposition: Home or Self Care 02/04/2025 11:00 AM EST Office Visit [address] [place] [address] Zeenat Santana MD Hallucinations (Primary Dx); Elevated glucose; Serum calcium elevated; Acute pain of right hip; Frequent falls; Closed head injury, initial encounter 02/04/[address] [place] [address] Zeenat Santana MD Triage (Hallucinating and falling) 01/07/2025 Orders Only [address] [place] [address] Unknown, Unknown, MD 12/02/2024 10:43 AM EDT - 12/02/2024 11:59 PM EDT Hospital Encounter [facility] [address] [place] [address] Morris Sanchez MD Discharge Disposition: Home or Self Care 12/02/2024 10:00 AM EDT Office Visit [address] [place] [address] Zeenat Santana MD Essential hypertension (Primary Dx); [...] Sign Reading Time Taken Comments Blood Pressure 130/78 02/04/2025 10:59 AM EST Pulse 89 02/04/2025 10:59 AM EST Temperature 36.7 C (98 F) 07/14/2023 3:41 PM EDT Respiratory Rate 16 07/14/2023 3:41 PM EDT Oxygen Saturation 92% 02/04/2025 10:59 AM EST Inhaled Oxygen Concentration - - Weight 70.9 kg (156 lb 3.2 oz) 02/04/2025 10:59 AM EST Height 170.2 cm (5' 7 ) 05/06/2024 11:12 AM EST Body Mass Index 24.46 05/06/2024 11:12 AM EST Plan of Treatment Upcoming Encounters Date Type Department Care Team (Late st Contact Info) Description 02/04/2025 Procedure Pass [facility], Ct Scan [address] [address] 02/14/2025 4:30 PM EST Appointment [address] [address] Zeenat Santana MD [address] [place] [address], 2nd [place] [address] 03/09/2025 1:00 PM EST Office Visit [facility] Psychology Assessment Center [address] 7th [place] [address] Audra Blair, PhD [address] [place] [address] [email or web address] 03/22/2025 1:00 PM EST Telemedicine [facility] Sleep Disorders Unit [address] [facility], 8th Floor, [address] [place] [address] Gianni Forbes FNP [address] [facility] [address] [place] [address] [email or web address] 04/05/2025 1:00 PM EST Office Visit [facility] [address] [place] [address] [place] [address] Zeenat Santana MD [address] [place] [address], 2nd [place] [address] [email or web address] Health Maintenance Due Date Last Done Comments Adult Td,Tdap Booster 1955 LIPID PANEL 1953 HEPATITIS C SCREENING 1971 COLOGUARD 1998 COLONOSCOPY 1998 COLORECTAL CANCER SCREENING 1998 FIT TEST 1998 FOBT 1998 SIGMOIDOSCOPY 1998 VIRTUAL COLONOSCOPY 1998 LUNG CANCER SCREENING (LDCT Only) 2003 PNEUMOCOCCAL VACCINES (50+ years) (1 of 1 - PCV) 2003 ZOSTER VACCINES (1 of 2) 2003 REPEAT PHQ 03/25/2025 11/26/2024, 11/26/2024 Postp oned from 12/26/2024 (Not Clinically Appropriate) COVID-19 VACCINE (2 - 2024- season) 2025 01/27/2025, 10/23/2023, 02/27/2023, Additional history exists BLOOD PRESSURE 08/04/2025 02/04/2025 DEPRESSION SCREENING 11/26/2025 11/26/2024, 11/27/19 25 CREATININE [...] AM EST Acute pain of right hip POCT URINALYSIS, DIPSTICK Routine 02/04/2025 12:15 PM EST OUTSIDE LAB Routine 12/23/2024 11:46 AM EDT [...] Recently Relevant to Health Maintenance Results * XR HIP 2 VW RIGHT [...] Frontal evaluation of the left hip shows cdkj-[id number] degenerative changes. Right hip: No displaced fracture. Moderate degenerative changes. Procedure Note Lazaro Lockhart MD - 02/07/2025 XR HIP 2 VW RIGHT PLUS PELVIS Referring clinician's provided indication for this examination in Epic:Pain COMPARISON: None FINDINGS: Pelvis: Partially imaged advanced lower lumbar spine degenerative changes.Sacroiliac joints and pubic symphysis are intact. Frontal evaluation ofthe left hip shows cdpc-[id number]-haowulld degenerative changes. Right hip: No displaced fracture. Moderate degenerative changes. IMPRESSION: Moderate right and mild to moderate left hip degenerative changes. us Zeenat A Max CAMPOS IMG XR PELVIS Final Result * (ABNORMAL) POCT Urinalysis, Dipstick (02/04/2025 12:15 PM EST) Color Sarah(A) Colorless, Light Yellow, Yellow, Not Entered 02/04/2025 12:18 PM EST [facility] Clarity Clear Clear, Not Entered 02/04/2025 12:18 PM EST [facility] Glucose Negative Negative 02/04/2025 12:18 PM EST [facility] Ketone Trace(A) Negative 02/04/2025 12:18 PM EST [facility] Urobilinogen 1.0(H) <1.0 02/04/2025 12:18 PM EST [facility] Bilirubin, Urine Negative Negative 02/05/20 12:18 PM EST [facility] Blood Negative Negative 02/04/2025 12:18 PM EST [facility] Protein Negative Negative 02/04/2025 12:18 PM EST [facility] Nitrites Negative Negative 02/04/2025 12:18 PM EST [facility] Leukocytes Negative Negative 02/04/2025 12:18 PM EST [facility] pH 7.0 5.0 - 8.0 02/04/2025 12:18 PM EST [facility] Specific Mantee 1.015 1.001 - 1.030 02/04/2025 12:18 PM EST [facility] Urine (Urine, Voided) 02/04/2025 12:15 PM EST 02/04/2025 12:18 PM EST us Zeenat A Max CAMPOS LAB POCT DOCKED DEVICE UNSOLI CTED RESULTS Final Result [facility] [address] [place] [address], [facility] [phone] * Outside Lab (12/23/2024 11:46 AM EDT) us Unknown Unknown MD LAB BLOOD BKR ORDERABLES Edit ed Result - Final * Lyme Western blot only (12/02/2024 10:44 AM EDT) IGG Immunoblot Negative Negative [facility] LAB MED/PATH [address] DR IGG BANDS (KDA) p23 kDa [facility] MED/PATH SUPERIOR DR IGM Immunoblot Negative Negative [facility] MED/PATH SUPERIOR DR IGM BANDS (KDA) p41 kDa [facility] MED/PATH SUPERIOR Interpretation - Lyme SEE NOTE [facility]PER[facility] Comment: (NOTE) Specific serologic [...] MD LAB BLOOD BKR ORDERABLES Final Result [facility] [address] [place] [address] * (ABNORMAL) Lyme Screen with Reflex to Immunoblot, Blood (12/02/2024 10:44 AM EDT) Lyme AB IgG Negative Negative [facility] Lyme AB IgM Equivocal(A) Negative [facility] Comment:The Lyme Disease Ant ibody, Confirmation, Serum (Western Blot) has been reflexed. The results will follow. Blood 12/02/2024 10:4 4 AM EDT 12/02/2024 10:50 AM EDT Morris Sanchez MD LAB BLOOD BKR ORDERABLES Final Result Performing Organization Address [facility]/ZIP Co de Phone Number [address] [address] * (ABNORMAL) Comprehensive metabolic panel (12/02/2024 10:44 AM EDT) SODIUM 144 133 - 146 mmol/L [facility] POTASSIUM 4.6 3.3 - 5.1 mmol/L [facility] CHLORIDE 105 96 - 108 mmol/L [facility] CO2 28 21 - 35 mmol/L [facility] BUN 15 6 - 19 mg/dL [facility] CREATININE 1.00 0.5 - 1.5 mg/dL [facility] GLUCOSE 110(H) 70 - 99 mg/dL [facility] ALBUMIN 4.1 3.9 - 4.8 g/dL [facility] TOTAL PROTEIN 7.1 6.5 - 8.0 g/dL [facility] CALCIUM 10.4(H) 8.4 - 10.3 mg/dL [facility] ALKALINE PHOSPHATASE 111 39 - 117 U/L [facility] TOTAL BILIRUBIN 0.3 0.0 - 1.2 mg/dL [facility] AST 33 0 - 37 U/L [facility] ALT 22 0 - 40 U/L [facility] GLOBULIN 3.0 1 - 4.8 g/dL [facility] EGFR 60 >59 mL/min/1.7 3m2 [facility] Comment:Estimated glomerular filtration rate calculated using the CKD-EPI refit equation. ANION GAP 16 10 - 20 mmol/L [facility] Blood 12/02/2024 10:4 4 AM EDT 12/02/2024 10:50 AM EDT us Morris Sanchez MD LAB BLOOD BKR ORDERABLES Final Result [address] [address] * TSH with reflex (12/02/2024 10:44 AM EDT) TSH 2.65 0.27 - 4.20 uIU/mL [facility] Blood 12/02/2024 10:4 4 AM EDT 12/02/2024 10:50 AM EDT us Morris Sanchez MD LAB BLOOD BKR ORDERABLES Final Result Performing Organization Address [facility] Co de Phone Number [address] [address] * Syphilis antibody screen (12/02/2024 10:44 AM EDT) RPR NON-REACTIV E NON-REACTI VE [facility] Blood 12/02/2024 10:4 4 AM EDT 12/02/2024 10:50 AM EDT us Morris Sanchez MD LAB BLOOD BKR ORDERABLES Final Result Performing Organization Address [facility] Co de Phone Number [address] [address] * 25-OH vitamin D (12/02/2024 10:44 AM EDT) 25 OH VIT D (TOTAL) 48 30 - 60 ng/mL [facility] Blood 12/02/2024 10:4 4 AM EDT 12/02/2024 10:50 AM EDT us Morris Sanchez MD LAB BLOOD BKR ORDERABLES Final Result Performing Organization Address City/[facility]/ZIP Co de Phone Number [address] [address] * Sedimentation rate (ESR) (12/02/2024 10:44 AM EDT) ESR 29 0 - 30 mm/h [facility] Blood 12/02/2024 10:4 4 AM EDT 12/02/2024 10:50 AM EDT us Morris Sanchez MD LAB BLOOD BKR ORDERABLES Final Result Performing Organization Address [facility] Co de Phone Number [address] [address] * CBC and differential (12/02/2024 10:44 AM EDT) WBC 6.47 4.00 - 11.00 K/uL [facility] RBC 4.67 4.00 - 5.20 M/uL [facility] HGB 13.1 12.0 - 16.0 g/dL [facility] HCT 40.7 36.0 - 46.0 % [facility] PLT 222 150 - 450 K/uL [facility] MCV 87.2 80.0 - 100.0 fL [facility] MCH 28.1 27.0 - 31.0 pg [facility] MCHC 32.2 32.0 - 36.0 g/dL [facility] RDW 13.2 11.5 - 14.5 % [facility] MPV 11.7 8.4 - 12.0 fL [facility] NRBC 0.00 0.00 /100 WBCs [facility] ABSOLUTE NRBC 0.00 0.00 K/uL [facility] DIFF METHOD Auto [facility] NEUTS 54.1 48.0 - 76.0 % [facility] LYMPHS 33.1 18.0 - 41.0 % [facility] MONOS 8.0 4.0 - 11.0 % [facility] EOS 3.2 0.0 - 5.0 % [facility] BASOS 1.4 0.0 - 1.5 % [facility] Granulocytes, immature (%) 0.2 0.0 - 0.9 % [facility] ABSOLUTE NEUTS 3.50 1.92 - 7.60 K/uL [facility] ABSOLUTE LYMPHS 2.14 0.72 - 4.10 K/uL [facility] ABSOLUTE MONOS 0.52 0.16 - 1.10 K/uL [facility] ABSOLUTE EOS 0.21 0.00 - 0.50 K/uL [facility] ABSOLUTE BASOS 0.09 0.00 - 0.15 K/uL [facility] Granulocytes, immature 0.01 0.00 - 0.09 K/uL [facility] Blood 12/02/2024 10:4 4 AM EDT 12/02/2024 10:50 AM EDT us Morris Sanchez MD LAB BLOOD BKR ORDERABLES Final Result [address] [address] * Folate (12/02/2024 10:44 AM EDT) FOLIC ACID 11.0 4.2 - 19.9 ng/mL [facility] Blood 12/02/2024 10:4 4 AM EDT 12/02/2024 10:50 AM EDT us Morris Sanchez MD LAB BLOOD BKR ORDERABLES Final Result [address] [address] * Vitamin B12 (12/02/2024 10:44 AM EDT) VITAMIN B12 281 232 - 1,245 pg/mL [facility] Blood 12/02/2024 10:4 4 AM EDT 12/02/2024 10:50 AM EDT us Morris Sanchez MD LAB BLOOD BKR ORDERABLES Final Result [address] [address] * BD DXA AXIAL (SPINE) WITH HIP (10/18/2024 2:48 PM EDT) Anatomical Region Laterality Modality Bone Density Bone Density 10/18/2024 2:47 PM EDT Impressions 10/19/2024 12:17 PM EDT Interpretation: Osteopenia. Narrative 10/19/2024 12:17 PM EDT Referred By: DAMION TAVERA Indications: Postmenopausal Scanner: [email or web address] with serial# of [id number] located at [facility] Bone Density Scan (DXA) 10/18/24 Details of [...] -2.5), or Osteoporosis (T-score <= -2.5). At [facility], T-scores are compared to peak bone density [...] Referred By: DAMION TAVERA Indications: Postmenopausal Scanner: [email or web address] with serial# of [id number] located at [facility] Bone Density Scan (DXA) 10/18/24 Details [...] -2.5), or Osteoporosis (T-score <= -2.5). At [facility], T-scores are compared to peak bone density [...] density results. IMPRESSION: Interpretation: Osteopenia. us Damion Tavera THERAPY AIDE IMG BD BONE DENSITY DEXA Fi nal [...] notified of the results and recommendations. Damion Tvaera THERAPY AIDE IMG MG EXAMS Final Resul t from Last 3 Months or Most Recently Relevant to Health Maintenance Insurance [facility] MEDICARE REPLACEMENT [facility] MEDICARE REPLACEMENT [facility] MEDICARE REPLACEMENT [facility] MEDICARE [facility]PLACEMENT [facility] MEDICARE REPLACEMENT [facility] MEDICARE REPLACEMENT Care Teams C.O.D. Audit Clerk Relationship Specialty Start Date End Date Zeenat Santana MD [address] [place] [address], 2nd [place] [address] [email or web address] PCP - General Internal Medicine 12/02/24 Additional Source Comments The information contained in this document represents components of the legal health record. It is not the complete legal health record.[facility]
--- OUTSIDE RECORDS SUMMARY | 2025-02-10 01:29 | XMS_ITS | Encounter Summary ---
Author Organization [facility] Address [address] [place] [address] Phone Care Team Providers Care Switchboard Receptionist Name Role Phone Eliza Tavera Primary Care Provider [phone] Akilah Mary MD Primary Care Provider [phone] Zeenat Santana MD Primary Care Provider [phone] Reason for Visit * Reason Onset Date Comments Leg Pain 02/05/2024 Red Encounter Details Date Type Department Care Team (Late st Contact Info) Description 02/05/2024 Nurse Triage [facility] [address] [place] [address] Eliza Tavera FNP [address] [facility] [address] [place] [address] [email or web address] Leg Pain (Red/) Social History Tobacco Use [...] (i.e., loss of sensation) Protocols used: Leg [id number] * Vandana Portillo - 02/05/2024 10:45 AM EST Pt called stating has unbearable leg pain in left leg.Please contact and advise. Central Support Octave Board Assembler (Please do not reply to this user; this inbox is not monitored.) Thank you. documented in this encounter Plan of Treatment Upcoming Encounters Date Type Department Care Team (Late st Contact Info) Description 02/04/2025 Procedure Pass [facility], Ct Scan - [facility] [address] [place] [address] 02/14/2025 4:30 PM EST Appointment [facility], Mi Scan - [facility] [address] [place] [address] Zeenat Santana MD [address] [place] [address], 2nd [place] [address] [email or web address] 03/09/2025 1:00 PM EST Office Visit [facility] [address] 7th [place] [address] Audra Blair, PhD [address] [place] [address] [address] [place] [address] [email or web address] [email or web address] 03/22/2025 1:00 PM EST Telemedicine [facility] Sleep Disorders Unit [address] [place] [address], 8th Floor, [address] [place] [address] Gianni Forbes FNP [address] [place] [address] [facility] [address] [place] [address] [email or web address] 04/05/2025 1:00 PM EST Office Visit [facility] [address] [place] [address] [place] [address] Zeenat Santana MD [address] [place] [address], 2[address] [place] [address] [email or web address] documented as of this encounter Visit Diagnoses Not on filedocumented in this encounter Care Teams Switchboard Receptionist Relationship Specialty Start Date End Date Eliza Tavera FNP [address] [facility] [address] [place] [address] [email or web address] PCP - General Nurse Practitioner 10/27/23 05/13/24 Akilah Mary MD [address] [facility] [address] [place] [address] [email or web address] PCP - General Family Medicine 05/14/24 12/01/24 Zeenat Santana MD [address] [place] [address], 2nd [place] [address] [email or web address] PCP - General Internal Medicine 12/02/24 documented as of this encounter Additional Source Comments The information contained in this document represents components of the legal health record. It is not the complete legal health record.[facility]
== END 2025-02-09 16:18 | disposition home or self-care (01) ==
LOC: HO.HSMS 13:30
PROVIDERS: PCP Internal Medicine; Visit Provider Psychiatry & Neurology Neurology
DX: G25.5 Other chorea (principal); R06.83 Snoring
CPT/HCPCS: 99214